=== PATIENT | male | born 1995 | race Caucasian/White ===

== ENCOUNTER 2020-05-02 09:16 | Outpatient (CLI) | payer OTHER, SELFPAY | END 2020-05-02 09:17 | disposition home or self-care (01) | PROVIDERS: PCP Family Medicine; Visit Provider Family Medicine | DX: H91.93 Unspecified hearing loss, bilateral (principal) | CPT/HCPCS: 92556; 92567; 92587 ==

== ENCOUNTER 2023-06-03 08:29 | Outpatient (CLI) | payer OTHER, SELFPAY | END 2023-06-03 08:30 | disposition home or self-care (01) | PROVIDERS: PCP Family Medicine; Visit Provider Family Medicine | DX: H91.93 Unspecified hearing loss, bilateral (principal) | CPT/HCPCS: 92567 ==

== ENCOUNTER 2023-07-23 08:19 | Outpatient (CLI) | payer OTHER, SELFPAY | END 2023-07-23 08:20 | disposition home or self-care (01) | LOC: ANHBWCAUD 08:19 | PROVIDERS: PCP Family Medicine; Visit Provider Family Medicine | DX: H91.3 Deaf nonspeaking, not elsewhere classified (principal) | CPT/HCPCS: 92567 ==

== ENCOUNTER 2024-03-17 09:10 | Outpatient (CLI) | payer OTHER, SELFPAY ==
--- OUTSIDE RECORDS SUMMARY | 2024-03-18 22:16 | XMS_ITS | Clinical Summary ---
Author Organization [facility] Address [address] [place] [address] Phone Care Team Providers Care Segmental Wall Installer Name Role Phone Yoshi Naqvi MD Primary Care Provider [phone] Alma Delia Childers APRN, CLAY CARMAN Unavailable Allergies Active Allergy Reactions Criticality Noted Date Comments Cephalexin Unknown 03/02/2020 Carbamazepine Unknown 03/02/2020 Medications traMADol (ULTRAM) 50 MG Tablet Take 1 Tab by mouth every 6 hours as needed for Mild or more severe pain. 12 Tab 1 Active Additional Information Patient not taking.Reported on 10/16/2022 Carboxymethylcel lulose Sodium (Eye Drops) 0.5 % SolutionIndicati ons:Dry eyes Place 2 Drops in affected eye(s) 5 times daily as needed (dry eyes). 1 Bottle 1 Active erythromycin (ROMYCIN) 5 MG/GM OintmentIndicati ons:Eyelid inflammation Apply 1cm ribbon to lower lid of affected eye(s) QID x 7 days 3.5 g 1 Active Additional Information Patient not taking.Reported on 10/16/2022 magnesium hydroxide (MILK OF MAGNESIA) 400 MG/5ML Suspension Take 30 mL by mouth as needed for Constipation - 1st line. EVERY 3 DAYS Active ibuprofen (MOTRIN) 200 MG Tablet Take 2 Tablets by mouth every 6 hours as needed for Fever. 30 Tablet 1 Active Additional Information Patient not taking.Reported on 10/16/2022 omeprazole (PriLOSEC) 40 MG CAPSULE DELAYED RELEASEIndicatio ns:Gastroesophag eal reflux disease, unspecified whether esophagitis present Take 1 Capsule by mouth daily. 90 Capsule 1 3 Active famotidine (PEPCID) 20 MG TabletIndication s:Gastroesophage al reflux disease, unspecified whether esophagitis present Take 1 tablet by Mouth as needed for any breakthrough heartburn. No more than twice a day. 90 Tablet 3 Active Additional Information Patient taking differently: EVERY EVENING, (No instructions reported), Reported on 10/16/2022 acetaminophen (TYLENOL) 325 MG Tablet Take 650 mg by mouth every 4 hours as needed. Active dextromethorphan -guaiFENesin (ROBITUSSIN-DM) 10-100 MG/5ML Syrup Take 10 mL by mouth every 4 hours as needed. Active Triple Antibiotic 3.5-400-5000 Ointment Apply every 8 hours as needed. 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 Subclinical hypothyroidism 03/02/2020 Encounters Date Type Department Care Team Description 12/31/2023 Lab Requisition [facility] Laboratory Services 1 [place] [address] Yoshi Naqvi MD Hypothyroidism, unspecified from Last 3 Months Immunizations Immunization Administration Dates Next Due Covid-19, Mrna, Lnp-s, Pf, 30 Mcg/0.3 Ml Dose (P fizer) 12/29/2020 Social History Tobacco Use Types Packs/Day Years Used Date Smoking Tobacco: Never Smokeless Tobacco: Never Tobacco Cessation:Counseling Given: Not Answered Alcohol Use Standard Drinks/Week Comments Never 0 (1 standard drink = 0.6 oz pur e alcohol) AUDIT-C Answer Date Recorded Q1: How often do you have a drink containing alc ohol? Never 03/02/2020 Average Number of Drinks Not on file 021 Frequency of Binge Drinking Not on file 08/2020 Sexually Active Control Partners Comments Never Sex and Gender Information Value Date Recorded Sex Assigned at Not on file Legal Sex Male 8:40 PM CDT Gender Identity Not on file Sexual Orientation Not on file Last Filed Vital Signs Vital Sign Reading Time Taken Comments Blood Pressure 128/80 03/04/2023 10:56 AM PUBLIC POLICY ASSOCIATE Pulse 69 03/04/2023 10:56 AM PUBLIC POLICY ASSOCIATE Temperature 36.3 ??C (97.4 ??F) 03/04/2023 10:[address] Respiratory Rate 16 03/04/2023 10:56 AM PUBLIC POLICY ASSOCIATE Oxygen Saturation 97% 03/04/2023 10:56 AM PUBLIC POLICY ASSOCIATE Inhaled Oxygen Concentration - - Weight 60.9 kg (134 lb 3.2 oz) 03/04/2023 10:56 AM PUBLIC POLICY ASSOCIATE Height 172.7 cm (5' 8 ) 03/04/2023 10:56 AM PUBLIC POLICY ASSOCIATE Body Mass Index 20.41 03/04/2023 10:56 AM PUBLIC POLICY ASSOCIATE Plan of Treatment Health Maintenance Due Date Last Done Comments Hepatitis C Virus (HCV) Screening 1993 TdaP Immunization 1993 Hepatitis B Immunization (1 of 3 - 19+ 3-dose series) 2012 Influenza Immunization (#1) 2023 SARS-COV-2 Immunization ( season) 2023 06/05/2022, 12/29/2020, 04/28/2020, Additional history exists Respiratory Syncytial Virus (RSV) Immunization (Adult) (1 - 1-dose 75+ series) 2068 Meningococcal Immunization (ACWY) Aged Out No longer eligible based on patient's age to complete this topic Pneumococcal Immunization Combined Aged Out No longer eligible based on patient's age to complete this topic Rotavirus Immunization Aged Out No lo nger eligible based on patient's age to complete this topic Medical Devices Implanted Type Area Data Governance Consultant Device Identifier Shelf Expiration Date Model / Serial / Lot Pacemaker Edora 8 Matt - [id number] Implanted:Qty: 1 on 03/03/2020 by Horacio Helms MD at [facility] IMPLANT Left: Chest Wall [employer] 05/24/2021 [id number] / [id number] / [id number] [employer] Solia T 53 Implanted:Qty: 1 on 03/03/2020 by Horacio Helms MD at [facility] Left: Heart 11/23/2021 / [id number] / [id number] [employer] Solia Jt 45 Implanted:Qty: 1 on 03/03/2020 by Horacio Helms MD at [facility] Left: Heart 10/24/2021 / [id number] / [id number] Procedures Procedure Name Priority Date/Time Associated Diagnosis Comments THYROID STIMULATING HORMONE (TSH) Routine 12/31/2023 7:10 AM PUBLIC POLICY ASSOCIATE Hypothyroidism, unspecified from Last 3 Months Results * THYROID STIMULATING HORMONE (TSH) (12/31/2023 7:10 AM PUBLIC POLICY ASSOCIATE) TSH 4.208 0.300 - 5.000 mIU/L 12/31/2023 10:16 AM PUBLIC POLICY ASSOCIATE [facility] Blood Venipuncture / Unknown 12/31/2023 7:10 AM PUBLIC POLICY ASSOCIATE 12/31/2023 9:27 AM PUBLIC POLICY ASSOCIATE us Yoshi Naqvi MD CHEMISTRY ORDERABLES Final Res ult [facility] [address] [place] [address] from Last 3 Months Insurance MEDICAID [place] Advance Directives * Full Code (Latest Code Status on File) Date Activated Date Inactivated Comments 03/02/2020 11:03 AM 03/04/2020 3:00 PM CPR-Full Cheryl tment: FULL ARREST: Attempt Resuscitation/CPR wit intubation and mechanical ventilation. PRE-ARREST: Use entire range of life support measures to stabilize the patient. Care Teams Segmental Wall Installer Relationship Specialty Start Date End Date Yoshi Naqvi MD [address] [place] [address] [address] [place] [address] PCP - General Family Medicine 03/02/20 Alma Delia Childers APRN, CLAY CARMAN [address] [place] [address] Nurse Practitioner Advanced Practice Nurse 10/15/22
--- OUTSIDE RECORDS SUMMARY | 2024-03-18 22:17 | XMS_ITS | Encounter Summary ---
Author Organization [facility] Address [address] [place] [address] Phone Care Team Providers Care Talent Associate Name Role Phone Yoshi Naqvi MD Primary Care Provider [phone] Alma Delia Childers APRN, PROCEDURE ANALYST Unavailable Encounter Details Date Type Department Care Team (Late st Contact Info) Description 02/20/2022 Lab Requisition [facility] Laboratory Services 1 [place] [address] Yoshi Naqvi MD [address] [place] [address] [facility] [address] [place] [address] Encounter for screening for COVID-19 Social History Tobacco Use Types Packs/Day Years Used Date Smoking Tobacco: Never Smokeless Tobacco: Never Alcohol Use Standard Drinks/Week Comments Never 0 (1 standard drink = 0.6 oz pur e alcohol) AUDIT-C Answer Date Recorded Q1: How often do you have a drink containing alc ohol? Never 03/02/2020 Average Number of Drinks Not on file 021 Frequency of Binge Drinking Not on file 08/2020 Sex and Gender Information Value Date Recorded Sex Assigned at Not on file Legal Sex Male 8:40 PM CDT Gender Identity Not on file Sexual Orientation Not on file documented as of this encounter Plan of Treatment Not on file documented as of this encounter Procedures Procedure Name Priority Date/Time Associated Diagnosis Comments SARS-COV-2 BY MOLECULAR Routine 02/20/2022 7:57 AM SYSTEM TRAINER Encounter for screening for COVID-19 documented in this encounter Results * SARS-COV-2 BY MOLECULAR (02/20/2022 7:57 AM SYSTEM TRAINER) SARSCOV2 NOT DETECTED (Referen ce Range for this test is Not Detected ) [facility] THERMOFISHER FAST DX 02/21/2022 12:02 AM SYSTEM TRAINER [facility] Comment:This test was perfor med by a RT-PCR method. Other Non-Phlebotomy Collection / Unknown 02/20/2022 7:57 AM SYSTEM TRAINER 02/20/2022 2:07 PM SYSTEM TRAINER Narrative [facility] - 02/21/2022 12:02 AM SYSTEM TRAINER Authorized Fact Sheets about this test for providers and patients are available at: https://www.fda.gov/medical-devices/lhauxxosn-bzuqupvrur-osfmibq-devices/emergen -us e-authorizations Result [facility] us Yoshi Naqvi MD MICROBIOLOGY - GENERAL ORDERAB LES Final Result [facility] [address] [place] [address], documented in this encounter Visit Diagnoses Diagnosis Encounter for screening for COVID-19 documented in this encounter Additional Health Concerns Infection Onset Date Last Indicated Resolved Time COVID - 19 02/20/2022 05/08/2022 05/18/2022 12:1 6 AM CDT documented as of this encounter Care Teams Talent Associate Relationship Specialty Start Date End Date Yoshi Naqvi MD [address] [facility] [address] [place] [address] PCP - General Family Medicine 03/02/20 Alma Delia Chidlers APRN, PROCEDURE ANALYST [address] [place] [address] Nurse Practitioner Advanced Practice Nurse 10/15/22 documented as of this encounter
--- OUTSIDE RECORDS SUMMARY | 2024-03-18 22:17 | XMS_ITS | Encounter Summary ---
Author Organization [facility] Address [address] [place] [address] Phone Care Team Providers Care Racing Car Driver Name Role Phone Yoshi Naqvi MD Primary Care Provider [phone] Alma Delia Childers APRN, CAR PILOT Unavailable Encounter Details Date Type Department Care Team (Late st Contact Info) Description 04/10/2022 Lab Requisition [facility] Laboratory Services [address] [place] [address] Yoshi Naqvi MD [address] [place] [address] [facility] [address] [place] [address] Encounter for screening for COVID-19 Social History [...] Associated Diagnosis Comments SARS-COV-2 BY MOLECULAR Routine 04/10/2022 8:20 AM VULNERABILITY ASSESSMENT ANALYST Encounter for screening for COVID-19 documented in this encounter Results * SARS-COV-2 BY MOLECULAR (04/10/2022 8:20 AM VULNERABILITY ASSESSMENT ANALYST) SARSCOV2 NOT DETECTED (Referen ce Range for this test is Not Detected ) [facility] THERMOFISHER FAST DX 04/10/2022 8:07 PM VULNERABILITY ASSESSMENT ANALYST [facility] Comment:This test was perfor med by a RT-PCR method. Other No Phlebotomy Charged / Unknown 04/10/2022 8:20 AM VULNERABILITY ASSESSMENT ANALYST 04/10/2022 10:05 AM VULNERABILITY ASSESSMENT ANALYST Narrative [facility] - 04/10/2022 8:07 PM VULNERABILITY ASSESSMENT ANALYST Authorized Fact Sheets about this test for providers and patients are available at: https://www.fda.gov/medical-devices/vrdpfhmqo-uygymzrslf-tsbuewx-devices/emergen -us e-authorizations Result [facility] us Yoshi Naqvi MD MICROBIOLOGY - GENERAL ORDERAB LES Final Result [facility] [address] [place] [address], documented in this encounter Visit Diagnoses Diagnosis Encounter for screening for COVID-19 documented in this encounter Additional Health Concerns Infection Onset Date Last Indicated Resolved Time COVID - 19 02/20/2022 05/08/2022 05/18/2022 12:1 6 AM CDT documented as of this encounter Care Teams Racing Car Driver Relationship Specialty Start Date End Date Yoshi Naqvi MD [address] [place] [address] [address] [place] [address] PCP - General Family Medicine 03/02/20 Alma Delia Childers APRN, CAR PILOT [address] [place] [address] Nurse Practitioner Advanced Practice Nurse 10/15/22 documented as of this encounter
--- OUTSIDE RECORDS SUMMARY | 2024-03-18 22:17 | XMS_ITS | Encounter Summary ---
Author Organization [facility] Address [address] [place] [address] Phone Care Team Providers Care Medical Lab Tech Instructor Name Role Phone Yoshi Naqvi MD Primary Care Provider [phone] Alma Delia Childers APRN, SOLAR ELECTRIC INSTALLER Unavailable Encounter Details Date Type Department Care Team (Late st Contact Info) Description 04/17/2022 Lab Requisition [facility] Laboratory Services 1 [place] [address] Yoshi Naqvi MD [address] [place] [address] [facility] [address] [place] [address] Encounter for screening for COVID-19 Social History [...] Associated Diagnosis Comments SARS-COV-2 BY MOLECULAR Routine 04/17/2022 8:06 AM RN RADIATION ONCOLOGY Encounter for screening for COVID-19 documented in this encounter Results * SARS-COV-2 BY MOLECULAR (04/17/2022 8:06 AM RN RADIATION ONCOLOGY) SARSCOV2 NOT DETECTED (Referen ce Range for this test is Not Detected ) [facility] THERMOFISHER FAST DX 04/18/2022 12:34 AM RN RADIATION ONCOLOGY [facility] Comment:This test was perfor med by a RT-PCR method. Other Non-Phlebotomy Collection / Unknown 04/17/2022 8:06 AM RN RADIATION ONCOLOGY 04/17/2022 10:24 AM RN RADIATION ONCOLOGY Narrative [facility] - 04/18/2022 12:34 AM RN RADIATION ONCOLOGY Authorized Fact Sheets about this test for providers and patients are available at: https://www.fda.gov/medical-devices/iazxheabc-fqeocrclay-zikmkkz-devices/emergen -us e-authorizations Result [facility] us Yoshi Naqvi MD MICROBIOLOGY - GENERAL ORDERAB LES Final Result [facility] [address] [place] [address], documented in this encounter Visit Diagnoses Diagnosis Encounter for screening for COVID-19 documented in this encounter Additional Health Concerns Infection Onset Date Last Indicated Resolved Time COVID - 19 02/20/2022 05/08/2022 05/18/2022 12:1 6 AM CDT documented as of this encounter Care Teams Medical Lab Tech Instructor Relationship Specialty Start Date End Date Yoshi Naqvi MD [address] [place] [address] [address] [place] [address] PCP - General Family Medicine 03/02/20 Alma Delia Childers APRN, SOLAR ELECTRIC INSTALLER [address] [place] [address] Nurse Practitioner Advanced Practice Nurse 10/15/22 documented as of this encounter
--- OUTSIDE RECORDS SUMMARY | 2024-03-18 22:17 | XMS_ITS | Encounter Summary ---
Author Organization [facility] Address [address] [place] [address] Phone Care Team Providers Care Maintenance And Repair Worker Name Role Phone Yoshi Naqvi MD Primary Care Provider Alma Delia Childers APRN, POKER MACHINE ATTENDANT Unavailable Encounter Details Date Type Department Care Team (Late st Contact Info) Description 12/31/2023 Lab Requisition [facility] Laboratory Services 1 [place] [id number] Yoshi Naqvi MD [address] [place] [address] [facility] [address] [place] [address] Hypothyroidism, unspecified Social History Tobacco Use Types Packs/Day Years [...] STIMULATING HORMONE (TSH) Routine 12/31/2023 7:10 AM NECK BAND MAKER Hypothyroidism, unspecified documented in this encounter Results * THYROID STIMULATING HORMONE (TSH) (12/31/2023 7:10 AM NECK BAND MAKER) TSH 4.208 0.300 - 5.000 mIU/L 12/31/2023 10:16 AM NECK BAND MAKER [facility] Blood Venipuncture / Unknown 12/31/2023 7:10 AM NECK BAND MAKER 12/31/2023 9:27 AM NECK BAND MAKER us Yoshi Naqvi MD CHEMISTRY ORDERABLES Final Res ult [facility] [address] [place] [address] documented in this encounter Visit Diagnoses Diagnosis Hypothyroidism, unspecified documented in this encounter Care Teams Maintenance And Repair Worker Relationship Specialty Start Date End Date Yoshi Naqvi MD [address] [facility] [place] [address] PCP - General Family Medicine 03/02/20 Alma Delia Childers, COMMUNITY HEALTH COUNSELOR, POKER MACHINE ATTENDANT [address] [place] [address] Nurse Practitioner Advanced Practice Nurse 10/15/22 documented as of this encounter
--- OUTSIDE RECORDS SUMMARY | 2024-03-18 22:17 | XMS_ITS | Encounter Summary ---
Author Organization [facility] Address [address] [place] [address] Phone Care Team Providers Care Instrument Setter Name Role Phone Yoshi Naqvi MD Primary Care Provider [phone] Alma Delia Childers APRN, SILK CONDITIONER Unavailable Encounter Details Date Type Department Care Team (Late st Contact Info) Description 11/28/2021 Lab Requisition [facility] Laboratory Services [address] [place] [address] Yoshi Naqvi MD [address] [place] [address] [facility] [address] [place] [address] Encounter for screening for COVID-19 Social History [...] Associated Diagnosis Comments SARS-COV-2 BY MOLECULAR Routine 11/28/2021 8:14 AM CDT Encounter for screening for COVID-19 documented in this encounter Results * SARS-COV-2 BY MOLECULAR (11/28/2021 8:14 AM CDT) SARSCOV2 NOT DETECTED (Referen ce Range for this test is Not Detected ) [facility] THERMOFISHER FAST DX 11/29/2021 12:29 AM CDT [facility] Comment:This test was perfor med by a RT-PCR method. Other No Phlebotomy Charged / Unknown 11/28/2021 8:14 AM CDT 11/28/2021 1:49 PM CDT Narrative [facility] - 11/29/2021 12:29 AM CDT Authorized Fact Sheets about this test for providers and patients are available at: https://www.fda.gov/medical-devices/bjoedqsuy-kcxkwlplrm-ufcvxfw-devices/emergen -us e-authorizations us Yoshi Naqvi MD MICROBIOLOGY - GENERAL ORDERAB LES Final Result [facility] [address] [place] [address], documented in this encounter Visit Diagnoses Diagnosis Encounter for screening for COVID-19 documented in this encounter Additional Health Concerns Infection Onset Date Last Indicated Resolved Time COVID - 19 10/31/2021 01/02/2022 01/12/2022 12:1 6 AM GUEST SERVICE AIDE COVID - 19 02/20/2022 05/08/2022 05/18/2022 12:1 6 AM CDT documented as of this encounter Care Teams Instrument Setter Relationship Specialty Start Date End Date Yoshi Naqvi MD [address] [place] [address] [address] [place] [address] PCP - General Family Medicine 03/02/20 Alma Delia Childers APRN, SILK CONDITIONER [address] [place] [address] Nurse Practitioner Advanced Practice Nurse 10/15/22 documented as of this encounter
--- OUTSIDE RECORDS SUMMARY | 2024-03-18 22:17 | XMS_ITS | Encounter Summary ---
Author Organization [facility] Address [address] [place] [address] Phone Care Team Providers Care Team Psychologist Name Role Phone Yoshi Naqvi MD Primary Care Provider [phone] Alma Delia Childers APRN, SKEIN YARN DRIER Unavailable Encounter Details Date Type Department Care Team (Late st Contact Info) Description 01/02/2022 Lab Requisition [facility] Laboratory Services 1 [place] [address] Yoshi Naqvi MD [address] [place] [address] [facility] [address] [place] [address] Encounter for screening for COVID-19 Social History [...] on file Sexual Orientation Not on file COVID-19 Exposure Response Date Recorded In the last 10 days, have yo u been in contact with someone who was confirmed or suspected to have Coronavirus/COVID-19? No / Unsure 12/28/2021 5:44 PM CDT documented as of this encounter Plan of Treatment Not on file documented as of this encounter Procedures Procedure Name Priority Date/Time Associated Diagnosis Comments SARS-COV-2 BY MOLECULAR Routine 01/02/2022 8:10 AM ADMINISTRATIVE FELLOW Encounter for screening for COVID-19 documented in this encounter Results * SARS-COV-2 BY MOLECULAR (01/02/2022 8:10 AM ADMINISTRATIVE FELLOW) SARSCOV2 NOT DETECTED (Referen ce Range for this test is Not Detected ) [facility] THERMOFISHER FAST DX 01/03/2022 4:42 AM ADMINISTRATIVE FELLOW [facility] Comment:This test was perfor med by a RT-PCR method. Other No Phlebotomy Charged / Unknown 01/02/2022 8:10 AM ADMINISTRATIVE FELLOW 01/02/2022 11:40 AM ADMINISTRATIVE FELLOW Narrative [facility] - 01/03/2022 4:42 AM ADMINISTRATIVE FELLOW Authorized Fact Sheets about this test for providers and patients are available at: https://www.fda.gov/medical-devices/vasxayrar-foohpmblqn-gpivyer-devices/emergen -us e-authorizations us Yoshi Naqvi MD MICROBIOLOGY - GENERAL ORDERAB LES Final Result [facility] [address] [place] [address], documented in this encounter Visit Diagnoses Diagnosis Encounter for screening for COVID-19 documented in this encounter Additional Health Concerns Infection Onset Date Last Indicated Resolved Time COVID - 19 10/31/2021 01/02/2022 01/12/2022 12:1 6 AM ADMINISTRATIVE FELLOW COVID - 19 02/20/2022 05/08/2022 05/18/2022 12:1 6 AM CDT documented as of this encounter Care Teams Team Psychologist Relationship Specialty Start Date End Date Yoshi Naqvi MD [address] [facility] [address] [place] [address] PCP - General Family Medicine 03/02/20 Alma Delia Childers APRN, SKEIN YARN DRIER [address] [place] [address] Nurse Practitioner Advanced Practice Nurse 10/15/22 documented as of this encounter
--- OUTSIDE RECORDS SUMMARY | 2024-03-18 22:17 | XMS_ITS | Encounter Summary ---
Author Organization [facility] Address [address] [place] [address] Phone Care Team Providers Care Salesperson Burial Plots Name Role Phone Yoshi Naqvi MD Primary Care Provider [phone] Alma Delia Childers APRN, ORAL AND MAXILLOFACIAL SURGEON Unavailable Encounter Details Date Type Department Care Team (Late st Contact Info) Description 03/21/2022 Lab Requisition [facility] Laboratory Services 1 [place] [address] Yoshi Naqvi MD [address] [place] [address] [facility] [address] [place] [address] Encounter for screening for COVID-19 Social History [...] Associated Diagnosis Comments SARS-COV-2 BY MOLECULAR Routine 03/21/2022 8:13 AM CHIEF LIFESTYLE OFFICER Encounter for screening for COVID-19 documented in this encounter Results * SARS-COV-2 BY MOLECULAR (03/21/2022 8:13 AM CHIEF LIFESTYLE OFFICER) SARSCOV2 NOT DETECTED (Referen ce Range for this test is Not Detected ) [facility] THERMOFISHER FAST DX 03/21/2022 5:12 PM CHIEF LIFESTYLE OFFICER [facility] Comment:This test was perfor med by a RT-PCR method. Other Non-Phlebotomy Collection / Unknown 03/21/2022 8:13 AM CHIEF LIFESTYLE OFFICER 03/21/2022 9:56 AM CHIEF LIFESTYLE OFFICER Narrative [facility] - 03/21/2022 5:12 PM CHIEF LIFESTYLE OFFICER Authorized Fact Sheets about this test for providers and patients are available at: https://www.fda.gov/medical-devices/smlhzxqfu-itresfunqc-oalasej-devices/emergen -us e-authorizations Result [facility] us Yoshi Naqvi MD MICROBIOLOGY - GENERAL ORDERAB LES Final Result [facility] [address] [place] [address], documented in this encounter Visit Diagnoses Diagnosis Encounter for screening for COVID-19 documented in this encounter Additional Health Concerns Infection Onset Date Last Indicated Resolved Time COVID - 19 02/20/2022 05/08/2022 05/18/2022 12:1 6 AM CDT documented as of this encounter Care Teams Salesperson Burial Plots Relationship Specialty Start Date End Date Yoshi Naqvi MD [address] [place] [address] [address] [place] [address] PCP - General Family Medicine 03/02/20 Alma Delia Childers APRN, ORAL AND MAXILLOFACIAL SURGEON [address] [place] [address] Nurse Practitioner Advanced Practice Nurse 10/15/22 documented as of this encounter
--- OUTSIDE RECORDS SUMMARY | 2024-03-18 22:17 | XMS_ITS | Encounter Summary ---
Author Organization [facility] Address [address] [place] [address] Phone Care Team Providers Care Smutter Name Role Phone Yoshi Naqvi MD Primary Care Provider [phone] Alma Delia Childers APRN, TOP TILE DECORATOR Unavailable Encounter Details Date Type Department Care Team (Late st Contact Info) Description 06/27/2021 Lab Requisition [facility] Laboratory Services 1 [place] [address] Yoshi Naqvi MD [address] [place] [address] [facility] [address] [place] [address] Encounter for screening for COVID-19 Social History [...] Associated Diagnosis Comments SARS-COV-2 BY MOLECULAR Routine 06/27/2021 7:58 AM CDT Encounter for screening for COVID-19 documented in this encounter Results * SARS-COV-2 BY MOLECULAR (06/27/2021 7:58 AM CDT) SARSCOV2 NOT DETECTED (Referen ce Range for this test is Not Detected ) [facility] THERMOFISHER FAST DX 06/27/2021 11:33 PM CDT [facility] Comment:This test was perfor med by a RT-PCR method. Other Non-Phlebotomy Collection / Unknown 06/27/2021 7:58 AM CDT 06/27/2021 11:59 AM CDT Narrative [facility] - 06/27/2021 11:33 PM CDT Authorized Fact Sheets about this test for providers and patients are available at: https://www.fda.gov/medical-devices/yqfwqjwzz-yicusvsciy-bpedzid-devices/emergen -us e-authorizations us Yoshi Naqvi MD MICROBIOLOGY - GENERAL ORDERAB LES Final Result [facility] [address] [place] [address], documented in this encounter Visit Diagnoses Diagnosis Encounter for screening for COVID-19 documented in this encounter Additional Health Concerns Infection Onset Date Last Indicated Resolved Time COVID - 19 11/15/2020 08/01/2021 08/02/2021 2:04 PM CDT COVID - 19 Confirmed 08/01/2021 08/01/2021 022 12:16 AM CDT COVID - 19 10/31/2021 01/02/2022 01/12/2022 12:1 6 AM RESEARCH SCIENTIST COVID - 19 02/20/2022 05/08/2022 05/18/2022 12:1 6 AM CDT documented as of this encounter Care Teams Smutter Relationship Specialty Start Date End Date Yoshi Naqvi MD [address] [facility] [address] [place] [address] PCP - General Family Medicine 03/02/20 Alma Delia Childers APRN, TOP TILE DECORATOR #2 [place] [address] Nurse Practitioner Advanced Practice Nurse 10/15/22 documented as of this encounter
--- OUTSIDE RECORDS SUMMARY | 2024-03-18 22:17 | XMS_ITS | Encounter Summary ---
Author Organization [facility] Address [address] [place] [address] Phone Care Team Providers Care Health Professor Name Role Phone Yoshi Naqvi MD Primary Care Provider [phone] Alma Delia Childers APRN, ENVIRONMENTAL ASSISTANT Unavailable Encounter Details Date Type Department Care Team (Late st Contact Info) Description 12/19/2021 Lab Requisition [facility] Laboratory Services 1 [place] [address] Yoshi Naqvi MD [address] [place] [address] [facility] [address] [place] [address] Encounter for screening for COVID-19 Social History [...] Associated Diagnosis Comments SARS-COV-2 BY MOLECULAR Routine 12/19/2021 8:31 AM CDT Encounter for screening for COVID-19 documented in this encounter Results * SARS-COV-2 BY MOLECULAR (12/19/2021 8:31 AM CDT) SARSCOV2 NOT DETECTED (Referen ce Range for this test is Not Detected ) [facility] THERMOFISHER FAST DX 12/20/2021 12:21 AM CDT [facility] Comment:This test was perfor med by a RT-PCR method. Other Non-Phlebotomy Collection / Unknown 12/19/2021 8:31 AM CDT 12/19/2021 11:45 AM CDT Narrative [facility] - 12/20/2021 12:21 AM CDT Authorized Fact Sheets about this test for providers and patients are available at: https://www.fda.gov/medical-devices/eylpskwdr-ezbdxmmbom-jznmyfd-devices/emergen -us e-authorizations us Yoshi Naqvi MD MICROBIOLOGY - GENERAL ORDERAB LES Final Result [facility] [address] [place] [address], documented in this encounter Visit Diagnoses Diagnosis Encounter for screening for COVID-19 documented in this encounter Additional Health Concerns Infection Onset Date Last Indicated Resolved Time COVID - 19 10/31/2021 01/02/2022 01/12/2022 12:1 6 AM CUTLET MAKER PORK COVID - 19 02/20/2022 05/08/2022 05/18/2022 12:1 6 AM CDT documented as of this encounter Care Teams Health Professor Relationship Specialty Start Date End Date Yoshi Naqvi MD [address] [place] [address] [address] [place] [address] PCP - General Family Medicine 03/02/20 Alma Delia Childers APRN, ENVIRONMENTAL ASSISTANT [address]2 [place] [address] Nurse Practitioner Advanced Practice Nurse 10/15/22 documented as of this encounter
--- OUTSIDE RECORDS SUMMARY | 2024-03-18 22:17 | XMS_ITS | Encounter Summary ---
Author Organization [facility] Address [address] [place] [address] Phone Care Team Providers Care Dramatic Director Name Role Phone Yoshi Naqvi MD Primary Care Provider [phone] Alma Delia Childers APRN, WHEAT BUYER Unavailable Encounter Details Date Type Department Care Team (Late st Contact Info) Description 03/27/2022 Lab Requisition [facility] Laboratory Services 1 [place] [address] Yoshi Naqvi MD [address] [place] [address] [facility] 210 [place] [address] Encounter for screening for COVID-19 Social History [...] Associated Diagnosis Comments SARS-COV-2 BY MOLECULAR Routine 03/27/2022 7:57 AM LEATHER TANNER Encounter for screening for COVID-19 documented in this encounter Results * SARS-COV-2 BY MOLECULAR (03/27/2022 7:57 AM LEATHER TANNER) SARSCOV2 NOT DETECTED (Referen ce Range for this test is Not Detected ) [facility] THERMOFISHER FAST DX 03/27/2022 10:10 PM LEATHER TANNER [facility] Comment:This test was perfor med by a RT-PCR method. Other Non-Phlebotomy Collection / Unknown 03/27/2022 7:57 AM LEATHER TANNER 03/27/2022 10:11 AM LEATHER TANNER Narrative [facility] - 03/27/2022 10:10 PM LEATHER TANNER Authorized Fact Sheets about this test for providers and patients are available at: https://www.fda.gov/medical-devices/fmncjdqha-cmnailutth-hikrpvq-devices/emergen -us e-authorizations Result [facility] us Yoshi Naqvi MD MICROBIOLOGY - GENERAL ORDERAB LES Final Result [facility] [address] [place] [address], documented in this encounter Visit Diagnoses Diagnosis Encounter for screening for COVID-19 documented in this encounter Additional Health Concerns Infection Onset Date Last Indicated Resolved Time COVID - 19 02/20/2022 05/08/2022 05/18/2022 12:1 6 AM CDT documented as of this encounter Care Teams Dramatic Director Relationship Specialty Start Date End Date Yoshi Naqvi MD [address] [place] [address] [address] [place] [address] PCP - General Family Medicine 03/02/20 Alma Delia Childers APRN, WHEAT BUYER [address] [place] [address] Nurse Practitioner Advanced Practice Nurse 10/15/22 documented as of this encounter
--- OUTSIDE RECORDS SUMMARY | 2024-03-18 22:17 | XMS_ITS | Encounter Summary ---
Author Organization [facility] Address [address] [place] [address] Phone Care Team Providers Care Entry Rep Name Role Phone Yoshi Naqvi MD Primary Care Provider [phone] Alma Delia Childers APRN, SIMULATION SPECIALIST Unavailable Encounter Details Date Type Department Care Team (Late st Contact Info) Description 11/21/2021 Lab Requisition [facility] Laboratory Services 1 [place] [address] Yoshi Naqvi MD [address] [place] [address] [facility] [address] [place] [address] Encounter for screening for COVID-19 Social History [...] Associated Diagnosis Comments SARS-COV-2 BY MOLECULAR Routine 11/21/2021 7:51 AM CDT Encounter for screening for COVID-19 documented in this encounter Results * SARS-COV-2 BY MOLECULAR (11/21/2021 7:51 AM CDT) SARSCOV2 NOT DETECTED (Referen ce Range for this test is Not Detected ) [facility] THERMOFISHER FAST DX 11/22/2021 5:34 PM CDT [facility] Comment:This test was perfor med by a RT-PCR method. Other Non-Phlebotomy Collection / Unknown 11/21/2021 7:51 AM CDT 11/21/2021 11:57 AM CDT Narrative [facility] - 11/22/2021 5:34 PM CDT Authorized Fact Sheets about this test for providers and patients are available at: https://www.fda.gov/medical-devices/ubycghpjf-gmddkeajsu-tlnuyjw-devices/emergen -us e-authorizations us Yoshi Naqvi MD MICROBIOLOGY - GENERAL ORDERAB LES Final Result 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
--- OUTSIDE RECORDS SUMMARY | 2024-03-18 22:17 | XMS_ITS | Encounter Summary ---
Author Organization [facility] Address [address] [place] [address] Phone Care Team Providers Care Sheet Layer Name Role Phone Yoshi Naqvi MD Primary Care Provider [phone] Alma Delia Childers APRN, EXPERIMENTAL TECHNICIAN Unavailable Encounter Details Date Type Department Care Team (Late st Contact Info) Description 07/25/2021 Lab Requisition [facility] Laboratory Services 1 [place] [address] Yoshi Naqvi MD [address] [place] [address] [facility] [address] [place] [address] Encounter for screening for COVID-19 Social History [...] Associated Diagnosis Comments SARS-COV-2 BY MOLECULAR Routine 07/25/2021 8:06 AM CDT Encounter for screening for COVID-19 documented in this encounter Results * SARS-COV-2 BY MOLECULAR (07/25/2021 8:06 AM CDT) SARSCOV2 NOT DETECTED (Referen ce Range for this test is Not Detected ) [facility] THERMOFISHER FAST DX 07/26/2021 8:04 AM CDT [facility] Comment:This test was perfor med by a RT-PCR method. Other Non-Phlebotomy Collection / Unknown 07/25/2021 8:06 AM CDT 07/25/2021 12:53 PM CDT Narrative [facility] - 07/26/2021 8:04 AM CDT Authorized Fact Sheets about this test for providers and patients are available at: https://www.fda.gov/medical-devices/pohvmjmfq-pfwcmrlldb-iujcdjn-devices/emergen -us e-authorizations us Yoshi Naqvi MD MICROBIOLOGY - GENERAL ORDERAB LES Final Result [facility] [address] [place] [address], documented in this encounter Visit Diagnoses Diagnosis Encounter for screening for COVID-19 documented in this encounter Additional Health Concerns Infection Onset Date Last Indicated Resolved Time COVID - 19 11/15/2020 08/01/2021 08/02/2021 2:04 PM CDT COVID - 19 Confirmed 08/01/2021 08/01/2021 022 12:16 AM CDT COVID - 19 10/31/2021 01/02/2022 01/12/2022 12:1 6 AM WOVEN BLIND LOOM TENDER COVID - 19 02/20/2022 05/08/2022 05/18/2022 12:1 6 AM CDT documented as of this encounter Care Teams Sheet Layer Relationship Specialty Start Date End Date oYshi Naqvi MD [address] [facility] [address] [place] [address] PCP - General Family Medicine 03/02/20 Alma Delia Childers APRN, EXPERIMENTAL TECHNICIAN [address] [place] [address] Nurse Practitioner Advanced Practice Nurse 10/15/22 documented as of this encounter
--- OUTSIDE RECORDS SUMMARY | 2024-03-18 22:17 | XMS_ITS | Encounter Summary ---
Author Organization [facility] Address [address] [place] [address] Phone Care Team Providers Care Front Services Agent Name Role Phone Yoshi Naqvi MD Primary Care Provider [phone] Alma Delia Childers APRN, CONE EXAMINER Unavailable Encounter Details Date Type Department Care Team (Late st Contact Info) Description 12/05/2021 Lab Requisition [facility] Laboratory Services 1 [place] [address] Yoshi Naqvi MD [address] [place] [address] [facility] 210 [place] [address] Encounter for screening for COVID-19 Social History [...] Associated Diagnosis Comments SARS-COV-2 BY MOLECULAR Routine 12/05/2021 8:18 AM CDT Encounter for screening for COVID-19 documented in this encounter Results * SARS-COV-2 BY MOLECULAR (12/05/2021 8:18 AM CDT) SARSCOV2 NOT DETECTED (Referen ce Range for this test is Not Detected ) [facility] THERMOFISHER FAST DX 12/06/2021 12:18 AM CDT [facility] Comment:This test was perfor med by a RT-PCR method. Other No Phlebotomy Charged / Unknown 12/05/2021 8:18 AM CDT 12/05/2021 11:21 AM CDT Narrative [facility] - 12/06/2021 12:18 AM CDT Authorized Fact Sheets about this test for providers and patients are available at: https://www.fda.gov/medical-devices/wadqhgnnn-evqtyyblfg-exjbhmx-devices/emergen -us e-authorizations us Yoshi Naqvi MD MICROBIOLOGY - GENERAL ORDERAB LES Final Result [facility] [address] [place] [address], documented in this encounter Visit Diagnoses Diagnosis Encounter for screening for COVID-19 documented in this encounter Additional Health Concerns Infection Onset Date Last Indicated Resolved Time COVID - 19 10/31/2021 01/02/2022 01/12/2022 12:1 6 AM CLOCK AND WATCH HANDS 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
--- OUTSIDE RECORDS SUMMARY | 2024-03-18 22:17 | XMS_ITS | Encounter Summary ---
Author Organization [facility] Address [address] [place] [address] Phone Care Team Providers Care Calculus Teacher Name Role Phone Yoshi Naqvi MD Primary Care Provider [phone] Alma Delia Childers APRN, SQL SSIS DEVELOPER Unavailable Encounter Details Date Type Department Care Team (Late st Contact Info) Description 11/14/2021 Lab Requisition [facility] Laboratory Services 1 [place] [address] Yoshi Naqvi MD [address] [place] [address] [facility] 210 [place] [address] Encounter for screening for COVID-19 Social History [...] Associated Diagnosis Comments SARS-COV-2 BY MOLECULAR Routine 11/14/2021 7:41 AM CDT Encounter for screening for COVID-19 documented in this encounter Results * SARS-COV-2 BY MOLECULAR (11/14/2021 7:41 AM CDT) SARSCOV2 NOT DETECTED (Referen ce Range for this test is Not Detected ) [facility] THERMOFISHER FAST DX 11/15/2021 12:20 PM CDT [facility] Comment:This test was perfor med by a RT-PCR method. Other Non-Phlebotomy Collection / Unknown 11/14/2021 7:41 AM CDT 11/14/2021 11:[address] [facility] - 11/15/2021 12:20 PM CDT Authorized Fact Sheets about this test for providers and patients are available at: https://www.fda.gov/medical-devices/cgvspjyfb-zgqffaijsa-vhsyljc-devices/emergen -us e-authorizations us Yoshi Naqvi MD MICROBIOLOGY - GENERAL ORDERAB LES Final Result [facility] [address] [place] [address], documented in this encounter Visit Diagnoses Diagnosis Encounter for screening for COVID-19 documented in this encounter Additional Health Concerns Infection Onset Date Last Indicated Resolved Time COVID - 19 10/31/2021 01/02/2022 01/12/2022 12:1 6 AM BUSINESS SERVICES ANALYST COVID - 19 02/20/2022 05/08/2022 05/18/2022 12:1 6 AM CDT documented as of this encounter Care Teams Calculus Teacher Relationship Specialty Start Date End Date Yoshi Naqvi MD [address] [place] [address] [address] [place] [address] PCP - General Family Medicine 03/02/20 Alma Delia Childers APRN, SQL SSIS DEVELOPER #[address] [place] [address] Nurse Practitioner Advanced Practice Nurse 10/15/22 documented as of this encounter
--- OUTSIDE RECORDS SUMMARY | 2024-03-18 22:17 | XMS_ITS | Encounter Summary ---
Author Organization [facility] Address [address] [place] [address] Phone Care Team Providers Care Family Assessment Worker Name Role Phone Yoshi Naqvi MD Primary Care Provider [phone] Alma Delia Childers APRN, SALES ASSOCIATE KEY HOLDER Unavailable Encounter Details Date Type Department Care Team (Late st Contact Info) Description 04/03/2022 Lab Requisition [facility] Laboratory Services 1 [place] [address] Yoshi Naqvi MD [address] [place] [address] [facility] [address] [place] [address] Encounter for screening for COVID-19 Social History [...] Associated Diagnosis Comments SARS-COV-2 BY MOLECULAR Routine 04/03/2022 8:05 AM SQUARING MACHINE OPERATOR Encounter for screening for COVID-19 documented in this encounter Results * SARS-COV-2 BY MOLECULAR (04/03/2022 8:05 AM SQUARING MACHINE OPERATOR) SARSCOV2 NOT DETECTED (Referen ce Range for this test is Not Detected ) [facility] THERMOFISHER FAST DX 04/03/2022 7:20 PM SQUARING MACHINE OPERATOR [facility] Comment:This test was perfor med by a RT-PCR method. Other Non-Phlebotomy Collection / Unknown 04/03/2022 8:05 AM SQUARING MACHINE OPERATOR 04/03/2022 10:19 AM SQUARING MACHINE OPERATOR Narrative [facility] - 04/03/2022 7:20 PM SQUARING MACHINE OPERATOR Authorized Fact Sheets about this test for providers and patients are available at: https://www.fda.gov/medical-devices/ltasmkfpv-yfedbmumtg-hjcbxdm-devices/emergen -us e-authorizations Result [facility] us Yoshi Naqvi MD MICROBIOLOGY - GENERAL ORDERAB LES Final Result [facility] [address] [place] [address], documented in this encounter Visit Diagnoses Diagnosis Encounter for screening for COVID-19 documented in this encounter Additional Health Concerns Infection Onset Date Last Indicated Resolved Time COVID - 19 02/20/2022 05/08/2022 05/18/2022 12:1 6 AM CDT documented as of this encounter Care Teams Family Assessment Worker Relationship Specialty Start Date End Date Yoshi Naqvi MD [address] [place] [address] [address] [place] [address] PCP - General Family Medicine 03/02/20 Alma Delia Childers APRN, SALES ASSOCIATE KEY HOLDER [address] [place] [address] Nurse Practitioner Advanced Practice Nurse 10/15/22 documented as of this encounter
--- OUTSIDE RECORDS SUMMARY | 2024-03-18 22:17 | XMS_ITS | Encounter Summary ---
Author Organization [facility] Address [address] [place] [address] Phone Care Team Providers Care Therapeutic Strategy Lead Name Role Phone Yoshi Naqvi MD Primary Care Provider [phone] Alma Delia Childers APRN, HAND BOX FOLDER Unavailable Encounter Details Date Type Department Care Team (Late st Contact Info) Description 12/26/2021 Lab Requisition [facility] Laboratory Services 1 [place] [address] Yoshi Naqvi MD [address] [place] [address] [facility] 210 [place] [address] Encounter for screening for COVID-19 Social History [...] Associated Diagnosis Comments SARS-COV-2 BY MOLECULAR Routine 12/26/2021 8:23 AM CDT Encounter for screening for COVID-19 documented in this encounter Results * SARS-COV-2 BY MOLECULAR (12/26/2021 8:23 AM CDT) SARSCOV2 NOT DETECTED (Referen ce Range for this test is Not Detected ) [facility] THERMOFISHER FAST DX 12/27/2021 12:01 AM CDT [facility] Comment:This test was perfor med by a RT-PCR method. Other Non-Phlebotomy Collection / Unknown 12/26/2021 8:23 AM CDT 12/26/2021 11:25 AM CDT Narrative [facility] - 12/27/2021 12:01 AM CDT Authorized Fact Sheets about this test for providers and patients are available at: https://www.fda.gov/medical-devices/tirepcjdy-oytqrsafvk-twjlkiy-devices/emergen -us e-authorizations us Yoshi Naqvi MD MICROBIOLOGY - GENERAL ORDERAB LES Final Result [facility] [address] [place] [address], documented in this encounter Visit Diagnoses Diagnosis Encounter for screening for COVID-19 documented in this encounter Additional Health Concerns Infection Onset Date Last Indicated Resolved Time COVID - 19 10/31/2021 01/02/2022 01/12/2022 12:1 6 AM DIE SIZER COVID - 19 02/20/2022 05/08/2022 05/18/2022 12:1 6 AM CDT documented as of this encounter Care Teams Therapeutic Strategy Lead Relationship Specialty Start Date End Date Yoshi Naqvi MD [address] [facility] [address] PCP - General Family Medicine 03/02/20 Alma Delia Childers GERIATRICS PHYSICIAN, HAND BOX FOLDER [address] [place] [address] Nurse Practitioner Advanced Practice Nurse 10/15/22 documented as of this encounter
--- OUTSIDE RECORDS SUMMARY | 2024-03-18 22:17 | XMS_ITS | Encounter Summary ---
Author Organization [facility] Address [address] [place] [address] Phone Care Team Providers Care Contact Lens Flashing Puncher Name Role Phone Yoshi Naqvi MD Primary Care Provider Alma Delia Childers APRN, AMMONIA NITRATE OPERATOR Unavailable Encounter Details Date Type Department Care Team (Late st Contact Info) Description 07/04/2021 Lab Requisition [facility] Laboratory Services 1 [place] [address] Yoshi Naqvi MD [address] [place] [address] [facility] [address] [place] [address] Encounter for screening for COVID-19 Social History [...] Associated Diagnosis Comments SARS-COV-2 BY MOLECULAR Routine 07/04/2021 8:12 AM CDT Encounter for screening for COVID-19 documented in this encounter Results * SARS-COV-2 BY MOLECULAR (07/04/2021 8:12 AM CDT) SARSCOV2 NOT DETECTED (Referen ce Range for this test is Not Detected ) [facility] THERMOFISHER FAST DX 07/05/2021 10:12 AM CDT [facility] Comment:This test was perfor med by a RT-PCR method. Other Non-Phlebotomy Collection / Unknown 07/04/2021 8:12 AM CDT 07/04/2021 10:50 AM CDT Narrative [facility] - 07/05/2021 10:12 AM CDT Authorized Fact Sheets about this test for providers and patients are available at: https://www.fda.gov/medical-devices/pjcbbtbbh-pfhnxujqwu-kapjxau-devices/emergen -us e-authorizations us Yoshi Naqvi MD MICROBIOLOGY - GENERAL ORDERAB LES Final Result [facility] [address] [place] [address], documented in this encounter Visit Diagnoses Diagnosis Encounter for screening for COVID-19 documented in this encounter Additional Health Concerns Infection Onset Date Last Indicated Resolved Time COVID - 19 11/15/2020 08/01/2021 08/02/2021 2:04 PM CDT COVID - 19 Confirmed 08/01/2021 08/01/2021 022 12:16 AM CDT COVID - 19 10/31/2021 01/02/2022 01/12/2022 12:1 6 AM CHILD CAREGIVER PRIVATE HOME COVID - 19 02/20/2022 05/08/2022 05/18/2022 12:1 6 AM CDT documented as of this encounter Care Teams Contact Lens Flashing Puncher Relationship Specialty Start Date End Date Yoshi Naqvi MD [address] [facility] [address] [place] [address] PCP - General Family Medicine 03/02/20 Alma Delia Childers APRN, AMMONIA NITRATE OPERATOR [address] [place] [address] Nurse Practitioner Advanced Practice Nurse 10/15/22 documented as of this encounter
--- OUTSIDE RECORDS SUMMARY | 2024-03-18 22:17 | XMS_ITS | Encounter Summary ---
Author Organization [facility] Address [address] [place] [address] Phone Care Team Providers Care Outside Sales Account Manager Name Role Phone Yoshi Naqvi MD Primary Care Provider [phone] Alma Delia Childers APRN, MATERIAL CONTROL SPECIALIST Unavailable Encounter Details Date Type Department Care Team (Late st Contact Info) Description 12/12/2021 Lab Requisition [facility] Laboratory Services 1 [place] [address] Yoshi Naqvi MD [address] [place] [address] [facility] [address] [place] [address] Encounter for screening for COVID-19 Social History [...] Associated Diagnosis Comments SARS-COV-2 BY MOLECULAR Routine 12/12/2021 8:20 AM CDT Encounter for screening for COVID-19 documented in this encounter Results * SARS-COV-2 BY MOLECULAR (12/12/2021 8:20 AM CDT) SARSCOV2 NOT DETECTED (Referen ce Range for this test is Not Detected ) [facility] THERMOFISHER FAST DX 12/12/2021 11:59 PM CDT [facility] Comment:This test was perfor med by a RT-PCR method. Other Non-Phlebotomy Collection / Unknown 12/12/2021 8:20 AM CDT 12/12/2021 11:23 AM CDT Narrative [facility] - 12/12/2021 11:59 PM CDT Authorized Fact Sheets about this test for providers and patients are available at: https://www.fda.gov/medical-devices/izypnkocd-rgtajmzzlw-wtzykun-devices/emergen -us e-authorizations us Yoshi Naqvi MD MICROBIOLOGY - GENERAL ORDERAB LES Final Result [facility] [address] [place] [address], documented in this encounter Visit Diagnoses Diagnosis Encounter for screening for COVID-19 documented in this encounter Additional Health Concerns Infection Onset Date Last Indicated Resolved Time COVID - 19 10/31/2021 01/02/2022 01/12/2022 12:1 6 AM 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
--- OUTSIDE RECORDS SUMMARY | 2024-03-18 22:17 | XMS_ITS | Encounter Summary ---
Author Organization [facility] Address [address] [place] [address] Phone Care Team Providers Care Engineering Specialist Technician Name Role Phone Yoshi Naqvi MD Primary Care Provider [phone] Alma Delia Childers APRN, HOME CARE ATTENDANT Unavailable Encounter Details Date Type Department Care Team (Late st Contact Info) Description 07/18/2021 Lab Requisition [facility] Laboratory Services 1 [place] [address] Yoshi Naqvi MD [address] [place] [address] [facility] 210 [place] [address] Encounter for screening for COVID-19 Social History [...] Associated Diagnosis Comments SARS-COV-2 BY MOLECULAR Routine 07/18/2021 8:06 AM CDT Encounter for screening for COVID-19 documented in this encounter Results * SARS-COV-2 BY MOLECULAR (07/18/2021 8:06 AM CDT) SARSCOV2 NOT DETECTED (Referen ce Range for this test is Not Detected ) [facility] THERMOFISHER FAST DX 07/19/2021 12:49 AM CDT [facility] Comment:This test was perfor med by a RT-PCR method. Other Venipuncture / Unknown 07/18/2021 8:06 AM CDT 07/18/2021 12:03 PM CDT Narrative [facility] - 07/19/2021 12:49 AM CDT Authorized Fact Sheets about this test for providers and patients are available at: https://www.fda.gov/medical-devices/yrvveffkl-hpjflufasy-pobmmrn-devices/emergen cy-us e-authorizations us Yoshi Naqvi MD MICROBIOLOGY - GENERAL ORDERAB LES Final Result [facility] [address] [place] [address], documented in this encounter Visit Diagnoses Diagnosis Encounter for screening for COVID-19 documented in this encounter Additional Health Concerns Infection Onset Date Last Indicated Resolved Time COVID - 19 11/15/2020 08/01/2021 08/02/2021 2:04 PM CDT COVID - 19 Confirmed 08/01/2021 08/01/2021 022 12:16 AM CDT COVID - 19 10/31/2021 01/02/2022 01/12/2022 12:1 6 AM BRICK LAYER COVID - 19 02/20/2022 05/08/2022 05/18/2022 12:1 6 AM CDT documented as of this encounter Care Teams Engineering Specialist Technician Relationship Specialty Start Date End Date Yoshi Naqvi MD [address] [facility] [address] [place] [address] PCP - General Family Medicine 03/02/20 Alma Delia Childers, ETHNOLOGY PROFESSOR, HOME CARE ATTENDANT [address] [place] [address] Nurse Practitioner Advanced Practice Nurse 10/15/22 documented as of this encounter
--- OUTSIDE RECORDS SUMMARY | 2024-03-18 22:17 | XMS_ITS | Encounter Summary ---
Author Organization [facility] Address [address] [place] [address] Phone Care Team Providers Care Cataract Lens Generator Name Role Phone Yoshi Naqvi MD Primary Care Provider [phone] Alma Delia Childers APRN, COMPUTER SPECIALIST Unavailable Encounter Details Date Type Department Care Team (Late st Contact Info) Description 05/08/2022 Lab Requisition [facility] Laboratory Services 1 [place] [address] Yoshi Naqvi MD [address] [place] [address] [facility] [address] [place] [address] Encounter for screening for COVID-19 Social History [...] Associated Diagnosis Comments SARS-COV-2 BY MOLECULAR Routine 05/08/2022 7:59 AM CDT Encounter for screening for COVID-19 documented in this encounter Results * SARS-COV-2 BY MOLECULAR (05/08/2022 7:59 AM CDT) SARSCOV2 NOT DETECTED (Referen ce Range for this test is Not Detected ) [facility] THERMOFISHER FAST DX 05/08/2022 5:01 PM CDT [facility] Comment:This test was perfor med by a RT-PCR method. Other COVID 19 Collection / Unknown 05/08/2022 7:59 AM CDT 05/08/2022 9:43 AM CDT Narrative [facility] - 05/08/2022 5:01 PM CDT Authorized Fact Sheets about this test for providers and patients are available at: https://www.fda.gov/medical-devices/ljkwhlfdi-aghfjyuyvy-shvziko-devices/emergen -us e-authorizations us Yoshi Naqvi MD MICROBIOLOGY - GENERAL ORDERAB LES Final Result [facility] [address] [place] [address], documented in this encounter Visit Diagnoses Diagnosis Encounter for screening for COVID-19 documented in this encounter Additional Health Concerns Infection Onset Date Last Indicated Resolved Time COVID - 19 02/20/2022 05/08/2022 05/18/2022 12:1 6 AM CDT documented as of this encounter Care Teams Cataract Lens Generator Relationship Specialty Start Date End Date Yoshi Naqvi MD [address] [place] [address] [address] [place] [address] PCP - General Family Medicine 03/02/20 Alma Delia Childers APRN, COMPUTER SPECIALIST [address] [place] [address] Nurse Practitioner Advanced Practice Nurse 10/15/22 documented as of this encounter
--- OUTSIDE RECORDS SUMMARY | 2024-03-18 22:17 | XMS_ITS | Encounter Summary ---
Author Organization [facility] Address [address] [place] [address] Phone Care Team Providers Care Drapery Seamstress Name Role Phone Yoshi Naqvi MD Primary Care Provider [phone] Alma Delia Childers APRN, HEEL BRUSHER Unavailable Encounter Details Date Type Department Care Team (Late st Contact Info) Description 04/24/2022 Lab Requisition [facility] Laboratory Services 1 [place] [address] Yoshi Naqvi MD [address] [place] [address] [facility] [address] [place] [address] Encounter for screening for COVID-19 Social History [...] Associated Diagnosis Comments SARS-COV-2 BY MOLECULAR Routine 04/24/2022 8:08 AM POSTMASTER RELIEF Encounter for screening for COVID-19 documented in this encounter Results * SARS-COV-2 BY MOLECULAR (04/24/2022 8:08 AM POSTMASTER RELIEF) SARSCOV2 NOT DETECTED (Referen ce Range for this test is Not Detected ) [facility] THERMOFISHER FAST DX 04/25/2022 8:01 AM POSTMASTER RELIEF [facility] Comment:This test was perfor med by a RT-PCR method. Other Non-Phlebotomy Collection / Unknown 04/24/2022 8:08 AM POSTMASTER RELIEF 04/24/2022 10:12 AM POSTMASTER RELIEF Narrative [facility] - 04/25/2022 8:01 AM POSTMASTER RELIEF Authorized Fact Sheets about this test for providers and patients are available at: https://www.fda.gov/medical-devices/xttyddlwi-ritbaviqln-qxwhaqm-devices/emergen -us e-authorizations Result On License Of [facility] us Yoshi Naqvi MD MICROBIOLOGY - GENERAL ORDERAB LES Final Result [facility] [address] [place] [address], documented in this encounter Visit Diagnoses Diagnosis Encounter for screening for COVID-19 documented in this encounter Additional Health Concerns Infection Onset Date Last Indicated Resolved Time COVID - 19 02/20/2022 05/08/2022 05/18/2022 12:1 6 AM CDT documented as of this encounter Care Teams Drapery Seamstress Relationship Specialty Start Date End Date Yoshi Naqvi MD [address] [place] [address] [address] [place] [address] PCP - General Family Medicine 03/02/20 Alma Delia Childers APRN, HEEL BRUSHER [address] [place] [address] Nurse Practitioner Advanced Practice Nurse 10/15/22 documented as of this encounter
--- OUTSIDE RECORDS SUMMARY | 2024-03-18 22:17 | XMS_ITS | Encounter Summary ---
Author Organization [facility] Address [address] [place] [address] Phone Care Team Providers Care Tanning Solution Maker Name Role Phone Yoshi Naqvi MD Primary Care Provider [phone] Alma Delia Childers APRN, HOOP PUNCH AND COILER OPERATOR HELPER Unavailable Encounter Details Date Type Department Care Team (Late st Contact Info) Description 03/06/2022 Lab Requisition [facility] Laboratory Services 1 [place] [address] Yoshi Naqvi MD [address] [place] [address] [facility] [address] [place] [address] Encounter for screening for COVID-19 Social History [...] Associated Diagnosis Comments SARS-COV-2 BY MOLECULAR Routine 03/06/2022 8:05 AM GARDE MANGER Encounter for screening for COVID-19 documented in this encounter Results * SARS-COV-2 BY MOLECULAR (03/06/2022 8:05 AM GARDE MANGER) SARSCOV2 NOT DETECTED (Referen ce Range for this test is Not Detected ) [facility] THERMOFISHER FAST DX 03/06/2022 10:53 PM GARDE MANGER [facility] Comment:This test was perfor med by a RT-PCR method. Other Non-Phlebotomy Collection / Unknown 03/06/2022 8:05 AM GARDE MANGER 03/06/2022 10:41 AM GARDE MANGER Narrative [facility] - 03/06/2022 10:53 PM GARDE MANGER Authorized Fact Sheets about this test for providers and patients are available at: https://www.fda.gov/medical-devices/bbmktllhi-ssdolrpmcu-ndpdood-devices/emergen -us e-authorizations Result [facility] us Yoshi Naqvi MD MICROBIOLOGY - GENERAL ORDERAB LES Final Result [facility] [address] [place] [address], documented in this encounter Visit Diagnoses Diagnosis Encounter for screening for COVID-19 documented in this encounter Additional Health Concerns Infection Onset Date Last Indicated Resolved Time COVID - 19 02/20/2022 05/08/2022 05/18/2022 12:1 6 AM CDT documented as of this encounter Care Teams Tanning Solution Maker Relationship Specialty Start Date End Date Yoshi Naqvi MD [address] [place] [address] [address] [place] [address] PCP - General Family Medicine 03/02/20 Alma Delia Childers APRN, HOOP PUNCH AND COILER OPERATOR HELPER [address] [place] [address] Nurse Practitioner Advanced Practice Nurse 10/15/22 documented as of this encounter
--- OUTSIDE RECORDS SUMMARY | 2024-03-18 22:17 | XMS_ITS | Encounter Summary ---
Author Organization [facility] Address [address] [place] [address] Phone Care Team Providers Care Seismograph Chief Name Role Phone Yoshi Naqvi MD Primary Care Provider [phone] Alma Delia Childers APRN, YOUTH CARE PROFESSIONAL Unavailable Encounter Details Date Type Department Care Team (Late st Contact Info) Description 05/30/2021 Lab Requisition [facility] Laboratory Services 1 [place] [address] Yoshi Naqvi MD [address] [place] [address] [facility] [address] [place] [address] Encounter for screening for COVID-19 Social History [...] Associated Diagnosis Comments SARS-COV-2 BY MOLECULAR Routine 05/30/2021 7:58 AM CDT Encounter for screening for COVID-19 documented in this encounter Results * SARS-COV-2 BY MOLECULAR (05/30/2021 7:58 AM CDT) SARSCOV2 NOT DETECTED (Referen ce Range for this test is Not Detected ) [facility] THERMOFISHER FAST DX 05/30/2021 11:28 PM CDT [facility] Comment:This test was perfor med by a RT-PCR method. Other Non-Phlebotomy Collection / Unknown 05/30/2021 7:58 AM CDT 05/30/2021 12:30 PM CDT Narrative [facility] - 05/30/2021 11:28 PM CDT Authorized Fact Sheets about this test for providers and patients are available at: https://www.fda.gov/medical-devices/glnnbgwpu-nntjwwtbfl-kmplmwc-devices/emergen -us e-authorizations us Yoshi Naqvi MD MICROBIOLOGY - GENERAL ORDERAB LES Final Result [facility] [address] [place] [address], documented in this encounter Visit Diagnoses Diagnosis Encounter for screening for COVID-19 documented in this encounter Additional Health Concerns Infection Onset Date Last Indicated Resolved Time COVID - 19 11/15/2020 08/01/2021 08/02/2021 2:04 PM CDT COVID - 19 Confirmed 08/01/2021 08/01/2021 022 12:16 AM CDT COVID - 19 10/31/2021 01/02/2022 01/12/2022 12:1 6 AM PIT OPERATOR COVID - 19 02/20/2022 05/08/2022 05/18/2022 12:1 6 AM CDT documented as of this encounter Care Teams Seismograph Chief Relationship Specialty Start Date End Date Yoshi Naqvi MD [address] [facility] [address] [place] [address] PCP - General Family Medicine 03/02/20 Alma Delia Childers APRN, YOUTH CARE PROFESSIONAL [address] [place] [address] Nurse Practitioner Advanced Practice Nurse 10/15/22 documented as of this encounter
--- OUTSIDE RECORDS SUMMARY | 2024-03-18 22:17 | XMS_ITS | Encounter Summary ---
Author Organization [facility] Address [address] [place] [address] Phone Care Team Providers Care Tenant Selector Name Role Phone Yoshi Naqvi MD Primary Care Provider [phone] Alma Delia Childers APRN, INHALATION THERAPY AIDE Unavailable Encounter Details Date Type Department Care Team (Late st Contact Info) Description 11/07/2021 Lab Requisition [facility] Laboratory Services 1 [place] [address] Yoshi Naqvi MD [address] [place] [address] [facility] 210 [place] [address] Encounter for screening for COVID-19 Social History [...] Associated Diagnosis Comments SARS-COV-2 BY MOLECULAR Routine 11/07/2021 7:46 AM CDT Encounter for screening for COVID-19 documented in this encounter Results * SARS-COV-2 BY MOLECULAR (11/07/2021 7:46 AM CDT) SARSCOV2 NOT DETECTED (Referen ce Range for this test is Not Detected ) [facility] THERMOFISHER FAST DX 11/07/2021 6:16 PM CDT [facility] Comment:This test was perfor med by a RT-PCR method. Other COVID 19 Collection / Unknown 11/07/2021 7:46 AM CDT 11/07/2021 9:31 AM CDT Narrative [facility] - 11/07/2021 6:16 PM CDT Authorized Fact Sheets about this test for providers and patients are available at: https://www.fda.gov/medical-devices/ixqcrbrri-ejjzfnrpnf-cxgumfj-devices/emergen -us e-authorizations us Yoshi Naqvi MD MICROBIOLOGY - GENERAL ORDERAB LES Final Result [facility] [address] [place] [address], documented in this encounter Visit Diagnoses Diagnosis Encounter for screening for COVID-19 documented in this encounter Additional Health Concerns Infection Onset Date Last Indicated Resolved Time COVID - 19 10/31/2021 01/02/2022 01/12/2022 12:1 6 AM CARRIER LOADER COVID - 19 02/20/2022 05/08/2022 05/18/2022 12:1 6 AM CDT documented as of this encounter Care Teams Tenant Selector Relationship Specialty Start Date End Date Yoshi Naqvi MD [address] [place] [address] [address] [place] [address] PCP - General Family Medicine 03/02/20 Alma Delia Childers APRN, INHALATION THERAPY AIDE [address] [place] [address] Nurse Practitioner Advanced Practice Nurse 10/15/22 documented as of this encounter
--- OUTSIDE RECORDS SUMMARY | 2024-03-18 22:17 | XMS_ITS | Encounter Summary ---
Author Organization [facility] Address [address] [place] [address] Phone Care Team Providers Care Public Speaker Name Role Phone Yoshi Naqvi MD Primary Care Provider Alma Delia Childers APRN, SALES CONSULTING DIRECTOR Unavailable Encounter Details Date Type Department Care Team (Late st Contact Info) Description 05/23/2021 Lab Requisition [facility] Laboratory Services 1 [place] [address] Yoshi Naqvi MD [address] [place] [address] [facility] [address] [place] [address] Encounter for screening for COVID-19 Social History [...] Associated Diagnosis Comments SARS-COV-2 BY MOLECULAR Routine 05/23/2021 7:47 AM CDT Encounter for screening for COVID-19 documented in this encounter Results * SARS-COV-2 BY MOLECULAR (05/23/2021 7:47 AM CDT) SARSCOV2 NOT DETECTED (Referen ce Range for this test is Not Detected ) [facility] THERMOFISHER FAST DX 05/24/2021 12:26 AM CDT [facility] Comment:This test was perfor med by a RT-PCR method. Other No Phlebotomy Charged / Unknown 05/23/2021 7:47 AM CDT 05/23/2021 1:00 PM CDT Narrative [facility] - 05/24/2021 12:26 AM CDT Authorized Fact Sheets about this test for providers and patients are available at: https://www.fda.gov/medical-devices/djgplwvdb-gejttjkxth-ayjlbkh-devices/emergen -us e-authorizations us Yoshi Naqvi MD MICROBIOLOGY - GENERAL ORDERAB LES Final Result [facility] [address] [place] [address], documented in this encounter Visit Diagnoses Diagnosis Encounter for screening for COVID-19 documented in this encounter Additional Health Concerns Infection Onset Date Last Indicated Resolved Time COVID - 19 11/15/2020 08/01/2021 08/02/2021 2:04 PM CDT COVID - 19 Confirmed 08/01/2021 08/01/2021 022 12:16 AM CDT COVID - 19 10/31/2021 01/02/2022 01/12/2022 12:1 6 AM AQUARIUM TANK ATTENDANT COVID - 19 02/20/2022 05/08/2022 05/18/2022 12:1 6 AM CDT documented as of this encounter Care Teams Public Speaker Relationship Specialty Start Date End Date Yoshi Naqvi MD [address] [facility] [address] [place] [address] PCP - General Family Medicine 03/02/20 Alma Delia Childers, HORIZONTAL BORING MILL OPERATOR, SALES CONSULTING DIRECTOR [address] [place] [address] Nurse Practitioner Advanced Practice Nurse 10/15/22 documented as of this encounter
--- OUTSIDE RECORDS SUMMARY | 2024-03-18 22:17 | XMS_ITS | Encounter Summary ---
Author Organization [facility] Address [address] [place] [address] Phone Care Team Providers Care Traveling Engineer Name Role Phone Yoshi Naqvi MD Primary Care Provider [phone] Alma Delia Childers APRN, PARTS DATA WRITER Unavailable Encounter Details Date Type Department Care Team (Late st Contact Info) Description 06/20/2021 Lab Requisition [facility] Laboratory Services 1 [place] [address] Yoshi Naqvi MD [address] [place] [address] [facility] [address] [place] [address] Encounter for screening for COVID-19 Social History [...] Associated Diagnosis Comments SARS-COV-2 BY MOLECULAR Routine 06/20/2021 8:14 AM CDT Encounter for screening for COVID-19 documented in this encounter Results * SARS-COV-2 BY MOLECULAR (06/20/2021 8:14 AM CDT) SARSCOV2 NOT DETECTED (Referen ce Range for this test is Not Detected ) [facility] THERMOFISHER FAST DX 06/21/2021 5:53 PM CDT [facility] Comment:This test was perfor med by a RT-PCR method. Other Non-Phlebotomy Collection / Unknown 06/20/2021 8:14 AM CDT 06/20/2021 3:03 PM CDT Narrative [facility] - 06/21/2021 5:53 PM CDT Authorized Fact Sheets about this test for providers and patients are available at: https://www.fda.gov/medical-devices/owdgrzcnq-fqoafwmjms-jbvojwv-devices/emergen -us e-authorizations us Yoshi Naqvi MD MICROBIOLOGY - GENERAL ORDERAB LES Final Result [facility] [address] [place] [address], documented in this encounter Visit Diagnoses Diagnosis Encounter for screening for COVID-19 documented in this encounter Additional Health Concerns Infection Onset Date Last Indicated Resolved Time COVID - 19 11/15/2020 08/01/2021 08/02/2021 2:04 PM CDT COVID - 19 Confirmed 08/01/2021 08/01/2021 022 12:16 AM CDT COVID - 19 10/31/2021 01/02/2022 01/12/2022 12:1 6 AM CONSUMER LOAN PROCESSOR COVID - 19 02/20/2022 05/08/2022 05/18/2022 12:1 6 AM CDT documented as of this encounter Care Teams Traveling Engineer Relationship Specialty Start Date End Date Yoshi Naqvi MD [address] [facility] [address] [place] [address] PCP - General Family Medicine 03/02/20 Alma Delia Childers APRN, PARTS DATA WRITER [address] [place] [address] Nurse Practitioner Advanced Practice Nurse 10/15/22 documented as of this encounter
--- OUTSIDE RECORDS SUMMARY | 2024-03-18 22:17 | XMS_ITS | Encounter Summary ---
Author Organization [facility] Address [address] [place] [address] Phone Care Team Providers Care Stitch Marker Name Role Phone Yoshi Naqvi MD Primary Care Provider Alma Delia Childers APRN, WINDROWER OPERATOR Unavailable Encounter Details Date Type Department Care Team (Late st Contact Info) Description 07/11/2021 Lab Requisition [facility] Laboratory Services 1 [place] [address] Yoshi Naqvi MD [address] [place] [address] [facility] 210 [place] [address] Encounter for screening for COVID-19 Social History [...] Associated Diagnosis Comments SARS-COV-2 BY MOLECULAR Routine 07/11/2021 8:22 AM CDT Encounter for screening for COVID-19 documented in this encounter Results * SARS-COV-2 BY MOLECULAR (07/11/2021 8:22 AM CDT) SARSCOV2 NOT DETECTED (Referen ce Range for this test is Not Detected ) [facility] THERMOFISHER FAST DX 07/12/2021 6:32 PM CDT [facility] Comment:This test was perfor med by a RT-PCR method. Other Non-Phlebotomy Collection / Unknown 07/11/2021 8:22 AM CDT 07/11/2021 10:50 AM CDT Narrative [facility] - 07/12/2021 6:32 PM CDT Authorized Fact Sheets about this test for providers and patients are available at: https://www.fda.gov/medical-devices/eoggsglqe-ltciuacbdx-pwldigr-devices/emergen -us e-authorizations us Yoshi Naqvi MD MICROBIOLOGY - GENERAL ORDERAB LES Final Result [facility] [address] [place] [address], documented in this encounter Visit Diagnoses Diagnosis Encounter for screening for COVID-19 documented in this encounter Additional Health Concerns Infection Onset Date Last Indicated Resolved Time COVID - 19 11/15/2020 08/01/2021 08/02/2021 2:04 PM CDT COVID - 19 Confirmed 08/01/2021 08/01/2021 022 12:16 AM CDT COVID - 19 10/31/2021 01/02/2022 01/12/2022 12:1 6 AM ANIMAL HUSBANDRY TEACHER COVID - 19 02/20/2022 05/08/2022 05/18/2022 12:1 6 AM CDT documented as of this encounter Care Teams Stitch Marker Relationship Specialty Start Date End Date Yoshi Naqvi MD [address] [facility] [address] [place] [address] PCP - General Family Medicine 03/02/20 Alma Delia Childers APRN, WINDROWER OPERATOR [address] [place] [address] Nurse Practitioner Advanced Practice Nurse 10/15/22 documented as of this encounter
--- OUTSIDE RECORDS SUMMARY | 2024-03-18 22:17 | XMS_ITS | Encounter Summary ---
Author Organization [facility] Address [address] [place] [address] Phone Care Team Providers Care Production Control Manager Name Role Phone Yoshi Naqvi MD Primary Care Provider [phone] Alma Delia Childers APRN, REGISTRAR MUSEUM Unavailable Encounter Details Date Type Department Care Team (Late st Contact Info) Description 05/01/2022 Lab Requisition [facility] Laboratory Services 1 [place] [address] Yoshi Naqvi MD [address] [place] [address] [facility] 210 [place] [address] Encounter for screening for COVID-19 Social History [...] Associated Diagnosis Comments SARS-COV-2 BY MOLECULAR Routine 05/01/2022 7:50 AM FARM ADVISER Encounter for screening for COVID-19 documented in this encounter Results * SARS-COV-2 BY MOLECULAR (05/01/2022 7:50 AM FARM ADVISER) SARSCOV2 NOT DETECTED (Referen ce Range for this test is Not Detected ) [facility] THERMOFISHER FAST DX 05/01/2022 7:37 PM FARM ADVISER [facility] Comment:This test was perfor med by a RT-PCR method. Other Non-Phlebotomy Collection / Unknown 05/01/2022 7:50 AM FARM ADVISER 05/01/2022 10:18 AM FARM ADVISER Narrative [facility] - 05/01/2022 7:37 PM FARM ADVISER Authorized Fact Sheets about this test for providers and patients are available at: https://www.fda.gov/medical-devices/tsaxmwcui-mbcfnvsvph-fvvwrnv-devices/emergen -us e-authorizations Result [facility] us Yoshi Naqvi MD MICROBIOLOGY - GENERAL ORDERAB LES Final Result [facility] [address] [place] [address], documented in this encounter Visit Diagnoses Diagnosis Encounter for screening for COVID-19 documented in this encounter Additional Health Concerns Infection Onset Date Last Indicated Resolved Time COVID - 19 02/20/2022 05/08/2022 05/18/2022 12:1 6 AM CDT documented as of this encounter Care Teams Production Control Manager Relationship Specialty Start Date End Date Yoshi Naqvi MD [address] [place] [address] [address] [place] [address] PCP - General Family Medicine 03/02/20 Alma Delia Childers APRN, REGISTRAR MUSEUM [address] [place] [address] Nurse Practitioner Advanced Practice Nurse 10/15/22 documented as of this encounter
--- OUTSIDE RECORDS SUMMARY | 2024-03-18 22:17 | XMS_ITS | Encounter Summary ---
Author Organization [facility] Address [address] [place] [address] Phone Care Team Providers Care Tank Farm Attendant Name Role Phone Yoshi Naqvi MD Primary Care Provider [phone] Alma Delia Childers APRN, FIRE PATROLLER Unavailable Encounter Details Date Type Department Care Team (Late st Contact Info) Description 08/01/2021 Lab Requisition [facility] Laboratory Services 1 [place] [address] Yoshi Naqvi MD [address] [place] [address] [facility] 210 [place] [address] Encounter for screening for COVID-19 Social History [...] Associated Diagnosis Comments SARS-COV-2 BY MOLECULAR Routine 08/01/2021 8:19 AM CDT Encounter for screening for COVID-19 documented in this encounter Results * (ABNORMAL) SARS-COV-2 BY MOLECULAR (08/01/2021 8:19 AM CDT) SARSCOV2 DETECTED( A) (Referenc e Range for this test is Not Detected) [facility] THERMOFISHER FAST DX 08/02/2021 2:04 PM CDT [facility] Comment:This test was perfor med by a RT-PCR method. Other Non-Phlebotomy Collection / Unknown 08/01/2021 8:19 AM CDT 08/01/2021 1:19 PM CDT Narrative [facility] - 08/02/2021 2:04 PM CDT Authorized Fact Sheets about this test for providers and patients are available at: https://www.fda.gov/medical-devices/dsfzhkvsh-alcwxrvzrn-usppcfn-devices/emergen -us e-authorizations us Yoshi Naqvi MD MICROBIOLOGY - GENERAL ORDERAB LES Final Result [facility] [address] [place] [address], documented in this encounter Visit Diagnoses Diagnosis Encounter for screening for COVID-19 documented in this encounter Additional Health Concerns Infection Onset Date Last Indicated Resolved Time COVID - 19 11/15/2020 08/01/2021 08/02/2021 2:04 PM CDT COVID - 19 Confirmed 08/01/2021 08/01/2021 022 12:16 AM CDT COVID - 19 10/31/2021 01/02/2022 01/12/2022 12:1 6 AM FORMING DEPARTMENT END FINDER COVID - 19 02/20/2022 05/08/2022 05/18/2022 12:1 6 AM CDT documented as of this encounter Care Teams Tank Farm Attendant Relationship Specialty Start Date End Date Yoshi Naqvi MD [address] [facility] [address] [place] [address] PCP - General Family Medicine 03/02/20 Alma Delia Childers APRN, FIRE PATROLLER [address] [place] [address] Nurse Practitioner Advanced Practice Nurse 10/15/22 documented as of this encounter
--- OUTSIDE RECORDS SUMMARY | 2024-03-18 22:17 | XMS_ITS | Encounter Summary ---
Author Organization [facility] Address [address] [place] [address] Phone Care Team Providers Care Toy Assembler Wood Name Role Phone Yoshi Naqvi MD Primary Care Provider [phone] Alma Delia Childers APRN, HEALTH ANALYTICS CONSULTANT Unavailable Encounter Details Date Type Department Care Team (Late st Contact Info) Description 02/27/2022 Lab Requisition [facility] Laboratory Services 1 [place] [address] Yoshi Naqvi MD [address] [place] [address] [facility] 210 [place] [address] Encounter for screening for COVID-19 Social History [...] Associated Diagnosis Comments SARS-COV-2 BY MOLECULAR Routine 02/27/2022 8:00 AM DIGITAL SALES PLANNER Encounter for screening for COVID-19 documented in this encounter Results * SARS-COV-2 BY MOLECULAR (02/27/2022 8:00 AM DIGITAL SALES PLANNER) SARSCOV2 NOT DETECTED (Referen ce Range for this test is Not Detected ) [facility] THERMOFISHER FAST DX 02/27/2022 9:20 PM DIGITAL SALES PLANNER [facility] Comment:This test was perfor med by a RT-PCR method. Other No Phlebotomy Charged / Unknown 02/27/2022 8:00 AM DIGITAL SALES PLANNER 02/27/2022 10:20 AM DIGITAL SALES PLANNER Narrative [facility] - 02/27/2022 9:20 PM DIGITAL SALES PLANNER Authorized Fact Sheets about this test for providers and patients are available at: https://www.fda.gov/medical-devices/cmggvmriq-lkrbvqbpuv-qjgufbm-devices/emergen -us e-authorizations Result [facility] us oYshi Naqvi MD MICROBIOLOGY - GENERAL ORDERAB LES Final Result Performing Organization Address City/State/[facility] Co de Phone Number [facility] [address] [place] [address], documented in this encounter Visit Diagnoses Diagnosis Encounter for screening for COVID-19 documented in this encounter Additional Health Concerns Infection Onset Date Last Indicated Resolved Time COVID - 19 02/20/2022 05/08/2022 05/18/2022 12:1 6 AM CDT documented as of this encounter Care Teams Toy Assembler Wood Relationship Specialty Start Date End Date Yoshi Naqvi MD [address] [place] [address] [address] [place] [address] PCP - General Family Medicine 03/02/20 Alma Delia Childers APRN, HEALTH ANALYTICS CONSULTANT [address] [place] [address] Nurse Practitioner Advanced Practice Nurse 10/15/22 documented as of this encounter
--- OUTSIDE RECORDS SUMMARY | 2024-03-18 22:17 | XMS_ITS | Encounter Summary ---
Author Organization [facility] Address [address] [place] [address] Phone Care Team Providers Care Manager Disaster Recovery Name Role Phone Yoshi Naqvi MD Primary Care Provider [phone] Alma Delia Childers APRN, VETERANS ADVISER Unavailable Encounter Details Date Type Department Care Team (Late st Contact Info) Description 06/13/2021 Lab Requisition [facility] Laboratory Services 1 [place] [address] Yoshi Naqvi MD [address] [place] [address] [facility] [address] [place] [address] Encounter for screening for COVID-19 Social History [...] Associated Diagnosis Comments SARS-COV-2 BY MOLECULAR Routine 06/13/2021 8:49 AM CDT Encounter for screening for COVID-19 documented in this encounter Results * SARS-COV-2 BY MOLECULAR (06/13/2021 8:49 AM CDT) SARSCOV2 NOT DETECTED (Referen ce Range for this test is Not Detected ) [facility] THERMOFISHER FAST DX 06/13/2021 11:12 PM CDT [facility] Comment:This test was perfor med by a RT-PCR method. Other Non-Phlebotomy Collection / Unknown 06/13/2021 8:49 AM CDT 06/13/2021 2:34 PM CDT Narrative [facility] - 06/13/2021 11:12 PM CDT Authorized Fact Sheets about this test for providers and patients are available at: https://www.fda.gov/medical-devices/ednynzxze-qxhogmmmje-qsdptvd-devices/emergen -us e-authorizations us Yoshi Naqvi MD MICROBIOLOGY - GENERAL ORDERAB LES Final Result [facility] [address] [place] [address], documented in this encounter Visit Diagnoses Diagnosis Encounter for screening for COVID-19 documented in this encounter Additional Health Concerns Infection Onset Date Last Indicated Resolved Time COVID - 19 11/15/2020 08/01/2021 08/02/2021 2:04 PM CDT COVID - 19 Confirmed 08/01/2021 08/01/2021 022 12:16 AM CDT COVID - 19 10/31/2021 01/02/2022 01/12/2022 12:1 6 AM POST ANESTHESIA NURSE COVID - 19 02/20/2022 05/08/2022 05/18/2022 12:1 6 AM CDT documented as of this encounter Care Teams Manager Disaster Recovery Relationship Specialty Start Date End Date Yoshi Naqvi MD [address] [facility] [address] [place] [address] PCP - General Family Medicine 03/02/20 Alma Delia Childers APRN, VETERANS ADVISER #[address] [place] [address] Nurse Practitioner Advanced Practice Nurse 10/15/22 documented as of this encounter
--- OUTSIDE RECORDS SUMMARY | 2024-03-18 22:17 | XMS_ITS | Encounter Summary ---
Author Organization [facility] Address [address] [place] [address] Phone Care Team Providers Care Material Loader Name Role Phone Yoshi Naqvi MD Primary Care Provider [phone] Alma Delia Childers APRN, DIRECTOR OF CASINO Unavailable Encounter Details Date Type Department Care Team (Late st Contact Info) Description 03/13/2022 Lab Requisition [facility] Laboratory Services 1 [place] [address] Yoshi Naqvi MD [address] [place] [address] [facility] [address] [place] [address] Encounter for screening for COVID-19 Social History [...] Associated Diagnosis Comments SARS-COV-2 BY MOLECULAR Routine 03/13/2022 7:55 AM ROBOTICS TECHNICIAN Encounter for screening for COVID-19 documented in this encounter Results * SARS-COV-2 BY MOLECULAR (03/13/2022 7:55 AM ROBOTICS TECHNICIAN) SARSCOV2 NOT DETECTED (Referen ce Range for this test is Not Detected ) [facility] THERMOFISHER FAST DX 03/13/2022 8:36 PM ROBOTICS TECHNICIAN [facility] Comment:This test was perfor med by a RT-PCR method. Other Non-Phlebotomy Collection / Unknown 03/13/2022 7:55 AM ROBOTICS TECHNICIAN 03/13/2022 10:06 AM ROBOTICS TECHNICIAN Narrative [facility] - 03/13/2022 8:36 PM ROBOTICS TECHNICIAN Authorized Fact Sheets about this test for providers and patients are available at: https://www.fda.gov/medical-devices/kvouvdguq-drgwfwzfer-rsgzwvk-devices/emergen -us e-authorizations Result Pending [facility] us Yoshi Naqvi MD MICROBIOLOGY - GENERAL ORDERAB LES Final Result [facility] [address] [place] [address], documented in this encounter Visit Diagnoses Diagnosis Encounter for screening for COVID-19 documented in this encounter Additional Health Concerns Infection Onset Date Last Indicated Resolved Time COVID - 19 02/20/2022 05/08/2022 05/18/2022 12:1 6 AM CDT documented as of this encounter Care Teams Material Loader Relationship Specialty Start Date End Date Yoshi Naqvi MD [address] [place] [address] [address] [place] [address] PCP - General Family Medicine 03/02/20 Alma Delia Childers APRN, DIRECTOR OF CASINO [address] [place] [address] Nurse Practitioner Advanced Practice Nurse 10/15/22 documented as of this encounter
--- OUTSIDE RECORDS SUMMARY | 2024-03-18 22:17 | XMS_ITS | Encounter Summary ---
Author Organization [facility] Address [address] [place] [address] Phone Care Team Providers Care Casting Coordinator Name Role Phone Yoshi Naqvi MD Primary Care Provider [phone] Alma Delia Childers APRN, GRUBBER Unavailable Encounter Details Date Type Department Care Team (Late st Contact Info) Description 10/31/2021 Lab Requisition [facility] Laboratory Services 1 [place] [address] Yoshi Naqvi MD [address] [place] [address] [facility] [address] [place] [address] Encounter for screening for COVID-19 Social History [...] Associated Diagnosis Comments SARS-COV-2 BY MOLECULAR Routine 10/31/2021 7:42 AM CDT Encounter for screening for COVID-19 documented in this encounter Results * SARS-COV-2 BY MOLECULAR (10/31/2021 7:42 AM CDT) SARSCOV2 NOT DETECTED (Referen ce Range for this test is Not Detected ) [facility] THERMOFISHER FAST DX 11/01/2021 8:21 AM CDT [facility] Comment:This test was perfor med by a RT-PCR method. Other COVID 19 Home Health/ [facility] Care [facility] Collection / Unknown 10/31/2021 7:42 AM CDT 10/31/2021 1:24 PM CDT Narrative [facility] - 11/01/2021 8:21 AM CDT Authorized Fact Sheets about this test for providers and patients are available at: https://www.fda.gov/medical-devices/zjpejixdw-yaulvhyavx-ljxyhfc-devices/emergen -us e-authorizations us Yoshi Naqvi MD MICROBIOLOGY - GENERAL ORDERAB LES Final Result [facility] [address] [place] [address], documented in this encounter Visit Diagnoses Diagnosis Encounter for screening for COVID-19 documented in this encounter Additional Health Concerns Infection Onset Date Last Indicated Resolved Time COVID - 19 10/31/2021 01/02/2022 01/12/2022 12:1 6 AM CORE SETTER COVID - 19 02/20/2022 05/08/2022 05/18/2022 12:1 6 AM CDT documented as of this encounter Care Teams Casting Coordinator Relationship Specialty Start Date End Date Yoshi Naqvi MD [address] [place] [address] [address] [place] [address] PCP - General Family Medicine 03/02/20 Alma Delia Childers APRN, GRUBBER [address] [place] [address] Nurse Practitioner Advanced Practice Nurse 10/15/22 documented as of this encounter
--- OUTSIDE RECORDS SUMMARY | 2024-03-18 22:17 | XMS_ITS | Encounter Summary ---
Author Organization [facility] Address [address] [place] [address] Phone Care Team Providers Care Marketing Lead Name Role Phone Yoshi Naqvi MD Primary Care Provider [phone] Alma Delia Childers APRN, WELLNESS SPECIALIST Unavailable Encounter Details Date Type Department Care Team (Late st Contact Info) Description 07/04/2021 Lab Requisition [facility] Laboratory Services 1 [place] [address] Yoshi Naqvi MD [address] [place] [address] [facility] 210 [place] [address] Encounter for screening for COVID-19 Social History [...] on file documented as of this encounter Visit Diagnoses Diagnosis Encounter for screening for COVID-19 documented in this encounter Additional Health Concerns Infection Onset Date Last Indicated Resolved Time COVID - 19 11/15/2020 08/01/2021 08/02/2021 2:04 PM CDT COVID - 19 Confirmed 08/01/2021 08/01/2021 022 12:16 AM CDT COVID - 19 10/31/2021 01/02/2022 01/12/2022 12:1 6 AM PROPERTY COORDINATOR COVID - 19 02/20/2022 05/08/2022 05/18/2022 12:1 6 AM CDT documented as of this encounter Care Teams Marketing Lead Relationship Specialty Start Date End Date Yoshi Naqvi MD [address] [facility] [address] [place] [address] PCP - General Family Medicine 03/02/20 Alma Delia Childers APRN, WELLNESS SPECIALIST [address] [place] [address] Nurse Practitioner Advanced Practice Nurse 10/15/22 documented as of this encounter
--- OUTSIDE RECORDS SUMMARY | 2024-03-18 22:17 | XMS_ITS | Encounter Summary ---
Author Organization [facility] Address [address] [place] [address] Phone Care Team Providers Care Pediatric Geneticist Name Role Phone Yoshi Naqvi MD Primary Care Provider [phone] Alma Delia Childers APRN, TECH BRAZER TESTER Unavailable Encounter Details Date Type Department Care Team (Late st Contact Info) Description 06/06/2021 Lab Requisition [facility] Laboratory Services 1 [place] [address] Yoshi Naqvi MD [address] [place] [address] [facility] 210 [place] [address] Encounter for screening for COVID-19 Social History [...] Associated Diagnosis Comments SARS-COV-2 BY MOLECULAR Routine 06/06/2021 8:13 AM CDT Encounter for screening for COVID-19 documented in this encounter Results * SARS-COV-2 BY MOLECULAR (06/06/2021 8:13 AM CDT) SARSCOV2 NOT DETECTED (Referen ce Range for this test is Not Detected ) [facility] THERMOFISHER FAST DX 06/07/2021 6:24 AM CDT [facility] Comment:This test was perfor med by a RT-PCR method. Other Non-Phlebotomy Collection / Unknown 06/06/2021 8:13 AM CDT 06/06/2021 12:59 PM CDT Narrative [facility] - 06/07/2021 6:24 AM CDT Authorized Fact Sheets about this test for providers and patients are available at: https://www.fda.gov/medical-devices/pakpuuxda-qmpiougvbz-xvihrkr-devices/emergen -us e-authorizations us Yoshi Naqvi MD MICROBIOLOGY - GENERAL ORDERAB LES Final Result [facility] [address] [place] [address], documented in this encounter Visit Diagnoses Diagnosis Encounter for screening for COVID-19 documented in this encounter Additional Health Concerns Infection Onset Date Last Indicated Resolved Time COVID - 19 11/15/2020 08/01/2021 08/02/2021 2:04 PM CDT COVID - 19 Confirmed 08/01/2021 08/01/2021 022 12:16 AM CDT COVID - 19 10/31/2021 01/02/2022 01/12/2022 12:1 6 AM DOVETAILER COVID - 19 02/20/2022 05/08/2022 05/18/2022 12:1 6 AM CDT documented as of this encounter Care Teams Pediatric Geneticist Relationship Specialty Start Date End Date Yoshi Naqvi MD [address] [facility] [address] [place] [address] PCP - General Family Medicine 03/02/20 Alma Delia Childers APRN, TECH BRAZER TESTER [address] [place] [address] Nurse Practitioner Advanced Practice Nurse 10/15/22 documented as of this encounter
--- OUTSIDE RECORDS SUMMARY | 2024-03-18 22:18 | XMS_ITS | Encounter Summary ---
Author Organization [facility] Address [address] [place] [address] Phone Care Team Providers Care Brickmason Contractor Name Role Phone Yoshi Naqvi MD Primary Care Provider [phone] Alma Delia Childers APRN, CARDROOM HAND Unavailable Encounter Details Date Type Department Care Team (Late st Contact Info) Description 02/07/2021 Lab Requisition [facility] Laboratory Services 1 [place] [address] Yoshi Naqvi MD [address] [place] [address] [facility] 210 [place] [address] Encounter for screening for COVID-19 Social History [...] Associated Diagnosis Comments SARS-COV-2 BY MOLECULAR Routine 02/07/2021 8:19 AM SLACKMAN Encounter for screening for COVID-19 documented in this encounter Results * SARS-COV-2 BY MOLECULAR (02/07/2021 8:19 AM SLACKMAN) SARSCOV2 NOT DETECTED (Referen ce Range for this test is Not Detected ) [facility] THERMOFISHER FAST DX 02/08/2021 6:01 PM SLACKMAN [facility] Comment:This test was perfor med by a RT-PCR method. Other No Phlebotomy Charged / Unknown 02/07/2021 8:19 AM SLACKMAN 02/07/2021 1:24 PM SLACKMAN Narrative [facility] - 02/08/2021 6:01 PM SLACKMAN Authorized Fact Sheets about this test for providers and patients are available at: https://www.fda.gov/medical-devices/sprpkailq-enzxsydlnq-iwmvjue-devices/emergen -us e-authorizations us Yoshi Naqvi MD MICROBIOLOGY - GENERAL ORDERAB LES Final Result [facility] [address] [place] [address], documented in this encounter Visit Diagnoses Diagnosis Encounter for screening for COVID-19 documented in this encounter Additional Health Concerns Infection Onset Date Last Indicated Resolved Time COVID - 19 11/15/2020 08/01/2021 08/02/2021 2:04 PM CDT COVID - 19 Confirmed 08/01/2021 08/01/2021 022 12:16 AM CDT COVID - 19 10/31/2021 01/02/2022 01/12/2022 12:1 6 AM SLACKMAN COVID - 19 02/20/2022 05/08/2022 05/18/2022 12:1 6 AM CDT documented as of this encounter Care Teams Brickmason Contractor Relationship Specialty Start Date End Date Yoshi Naqvi MD [address] [facility] [address] [place] [address] PCP - General Family Medicine 03/02/20 Alma Delia Childers APRN, CARDROOM HAND [address] [place] [address] Nurse Practitioner Advanced Practice Nurse 10/15/22 documented as of this encounter
--- OUTSIDE RECORDS SUMMARY | 2024-03-18 22:18 | XMS_ITS | Encounter Summary ---
Author Organization [facility] Address [address] [place] [address] Phone Care Team Providers Care Armament Aircraft Mechanic Name Role Phone Yoshi Naqvi MD Primary Care Provider [phone] Alma Delia Childers APRN, SENIOR IT RECRUITER Unavailable Encounter Details Date Type Department Care Team (Late st Contact Info) Description 11/22/2020 Lab Requisition [facility] Laboratory Services 1 [place] [address] Yoshi Naqvi MD [address] [place] [address] [facility] 210 [place] [address] Encounter for screening for COVID-19 Social History [...] Associated Diagnosis Comments SARS-COV-2 BY MOLECULAR Routine 11/22/2020 7:31 AM CDT Encounter for screening for COVID-19 documented in this encounter Results * SARS-COV-2 BY MOLECULAR (11/22/2020 7:31 AM CDT) SARSCOV2 NOT DETECTED (Referen ce Range for this test is Not Detected ) [facility] THERMOFISHER FAST DX 11/23/2020 6:36 AM CDT [facility] Comment:This test was perfor med by a RT-PCR method. Other No Phlebotomy Charged / Unknown 11/22/2020 7:31 AM CDT 11/22/2020 10:54 AM CDT Narrative [facility] - 11/23/2020 6:36 AM CDT Authorized Fact Sheets about this test for providers and patients are available at: https://www.fda.gov/medical-devices/ocgfloblp-enklxpxbry-elhlnyn-devices/emergen -us e-authorizations us Yoshi Naqvi MD MICROBIOLOGY - GENERAL ORDERAB LES Final Result [facility] [address] [place] [address], documented in this encounter Visit Diagnoses Diagnosis Encounter for screening for COVID-19 documented in this encounter Additional Health Concerns Infection Onset Date Last Indicated Resolved Time COVID - 19 11/15/2020 08/01/2021 08/02/2021 2:04 PM CDT COVID - 19 Confirmed 08/01/2021 08/01/2021 022 12:16 AM CDT COVID - 19 10/31/2021 01/02/2022 01/12/2022 12:1 6 AM ROOM SERVICE BELLHOP COVID - 19 02/20/2022 05/08/2022 05/18/2022 12:1 6 AM CDT documented as of this encounter Care Teams Armament Aircraft Mechanic Relationship Specialty Start Date End Date Yoshi Naqvi MD 4 [facility] [address] [place] [address] PCP - General Family Medicine 03/02/20 Alma Delia Childers, PATIENT SERVICES SPECIALIST, SENIOR IT RECRUITER [address] [place] [address] Nurse Practitioner Advanced Practice Nurse 10/15/22 documented as of this encounter
--- OUTSIDE RECORDS SUMMARY | 2024-03-18 22:18 | XMS_ITS | Encounter Summary ---
Author Organization [facility] Address [address] [place] [address] Phone Care Team Providers Care Digital Project Coordinator Name Role Phone Yoshi Naqvi MD Primary Care Provider [phone] Alma Delia Childers APRN, HOME STAGER Unavailable Encounter Details Date Type Department Care Team (Late st Contact Info) Description 03/14/2021 Lab Requisition [facility] Services 1 [place] [address] Yoshi Naqvi MD [address] [place] [address] [facility] [address] [place] [address] Encounter for screening for COVID-19 Social History [...] Associated Diagnosis Comments SARS-COV-2 BY MOLECULAR Routine 03/14/2021 8:22 AM ADDICTION SPECIALIST Encounter for screening for COVID-19 documented in this encounter Results * SARS-COV-2 BY MOLECULAR (03/14/2021 8:22 AM ADDICTION SPECIALIST) SARSCOV2 NOT DETECTED (Referen ce Range for this test is Not Detected ) [facility] THERMOFISHER FAST DX 03/16/2021 9:45 AM ADDICTION SPECIALIST [facility] Comment:This test was perfor med by a RT-PCR method. Other Non-Phlebotomy Collection / Unknown 03/14/2021 8:22 AM ADDICTION SPECIALIST 03/14/2021 2:42 PM ADDICTION SPECIALIST Narrative [facility] - 03/16/2021 9:45 AM ADDICTION SPECIALIST Authorized Fact Sheets about this test for providers and patients are available at: https://www.fda.gov/medical-devices/rbdlzcppy-evrofybyrm-uauuiyo-devices/emergen -us e-authorizations us Yoshi Naqvi MD MICROBIOLOGY - GENERAL ORDERAB LES Final Result [facility] [address] [place] [address], documented in this encounter Visit Diagnoses Diagnosis Encounter for screening for COVID-19 documented in this encounter Additional Health Concerns Infection Onset Date Last Indicated Resolved Time COVID - 19 11/15/2020 08/01/2021 08/02/2021 2:04 PM CDT COVID - 19 Confirmed 08/01/2021 08/01/2021 022 12:16 AM CDT COVID - 19 10/31/2021 01/02/2022 01/12/2022 12:1 6 AM ADDICTION SPECIALIST COVID - 19 02/20/2022 05/08/2022 05/18/2022 12:1 6 AM CDT documented as of this encounter Care Teams Digital Project Coordinator Relationship Specialty Start Date End Date Yoshi Naqvi MD [address] [facility] [address] [place] [address] PCP - General Family Medicine 03/02/20 Alma Delia Childers LIVESTOCK INSPECTOR, HOME STAGER [address] [place] [address] Nurse Practitioner Advanced Practice Nurse 10/15/22 documented as of this encounter
--- OUTSIDE RECORDS SUMMARY | 2024-03-18 22:18 | XMS_ITS | Referral Summary ---
Author Organization [facility] Address [address] [place] [address] Care Team Providers Care Lead Assistant Manager Name Role Phone Yoshi Naqvi MD Primary Care Provider [phone] Encounters Date Type Department Care Team Description 03/15/2024 Telephone [facility] [facility] [address] [place] [phone] Ofelia Álvarez 03/15/2024 9:45 AM MANUFACTURING SR ENGINEER Office Visit [facility] - [facility] [address] [facility] [address] [place] [address] Nunu Kauffman DO Conductive hearing loss, bilateral (Primary Dx); Impacted cerumen, bilateral 02/04/2024 9:30 AM MANUFACTURING SR ENGINEER Ancillary Procedure [facility] [address] [place] [phone] SSS (sick sinus syndrome) (CMS/HCC) (HCC); Cardiac pacemaker in situ 02/03/2024 Orders Only [facility] [address] [place] [phone] EdgarOfelia rasheed SSS (sick sinus syndrome) (CMS/HCC) (HCC) (Primary Dx); Cardiac pacemaker in situ; Atrial fibrillation, unspecified type (HCC) from Last 3 Months Allergies Active Allergy Reactions Criticality Noted Date Comments Carbamazepine Unknown 03/02/2020 Cephalexin Unknown 03/02/2020 Medications dextromethorpha n-guaiFENesin (ROBITUSSIN-DM) 2-20 mg/mL liquid Take 10 mL by mouth every 4 (four) hours as needed Active acetaminophen (TYLENOL) 325 mg tablet Take 2 tablets (650 mg total) by mouth every 4 (four) hours as needed Active magnesium hydroxide (MILK OF MAGNESIA) suspension 400 mg/5 mL Take 30 mL by mouth Active traMADoL (ULTRAM) 50 mg tablet Take 50 mg by mouth every 6 (six) hours as needed 1 Active bacitracin-neom ycin-polymyxin B (NEOSPORIN) ointmentIndicat ions:Minor Bacterial Skin Infections Apply topically 3 (three) times a day Active omeprazole (PriLOSEC) 40 mg capsule Take 1 capsule (40 mg total) by mouth daily Active carboxymethylce llulose (REFRESH TEARS) 0.5 % ophthalmic solution Administer 2 drops into affected eye(s) daily as needed 1 Active famotidine (PEPCID) 20 mg tablet Take 1 tablet (20 mg total) by mouth daily as needed for heartburn 3 Active Active Problems Problem Noted Date Diagnosed Date Conductive hearing loss, bilateral 03/15/2024 Assessment & Plan (03/16/2024 9:05 AM MANUFACTURING SR ENGINEER): Avoid ear cleaning techniques Follow up as needed Call for hearing test if hearing does not continue to improve after cerumen removal Impacted cerumen, bilateral 03/15/2024 Assessment & Plan (03/15/2024 10:22 AM MANUFACTURING SR ENGINEER): Avoid ear cleaning techniques Follow up as needed Social History Tobacco Use Types Packs/Day Years Used Date Smoking Tobacco: Never Tobacco Cessation:Counseling Given: No Sex and Gender Information Value Date Recorded Sex Assigned at Not on file Legal Sex Male 12:25 AM MANUFACTURING SR ENGINEER Gender Identity Not on file Sexual Orientation Not on file Last Filed Vital Signs Vital Sign Reading Time Taken Comments Blood Pressure 134/78 03/15/2024 9:36 AM MANUFACTURING SR ENGINEER Pulse 68 03/15/2024 9:36 AM MANUFACTURING SR ENGINEER Temperature 36.7 ??C (98.1 ??F) 04/14/2020 8:43 AM CS T Respiratory Rate 18 03/15/2024 9:36 AM MANUFACTURING SR ENGINEER Oxygen Saturation 96% 03/15/2024 9:36 AM MANUFACTURING SR ENGINEER Inhaled Oxygen Concentration - - Weight 66.2 kg (146 lb) 03/15/2024 9:36 AM MANUFACTURING SR ENGINEER Height 170.2 cm (5' 7.01 ) 03/15/2024 9:36 AM CS T Body Mass Index 22.86 03/15/2024 9:36 AM MANUFACTURING SR ENGINEER Plan of Treatment Not on file Procedures Procedure Name Priority Date/Time Associated Diagnosis Comments LA REMOVAL IMPACTED CERUMEN INSTRUMENTATION UNILAT Routine 03/15/2024 9:45 AM MANUFACTURING SR ENGINEER Impacted cerumen, bilateral DEVICE CHECK - REMOTE Routine 02/03/2024 9:15 AM MANUFACTURING SR ENGINEER SSS (sick sinus syndrome) (CMS/HCC) (HCC) Cardiac pacemaker in situ from Last 3 Months Results * LA REMOVAL IMPACTED CERUMEN INSTRUMENTATION UNILAT (03/15/2024 9:45 AM MANUFACTURING SR ENGINEER) Narrative Nunu Kauffman DO - 03/15/2024 9:45 AM MANUFACTURING SR ENGINEER Nunu Kauffman, DO ? 03/16/2024 ??9:08 AM Ear Cerumen Removal Performed by: Nunu Kauffman DO Authorized by: Nunu Kauffman DO ?? Consent Given by: ??Patient Timeout: prior to procedure the correct patient, procedure, and site was verified ?? Verbal consent obtained: Yes ?? Written consent obtained: No ?? Risks, alternatives, and patient questions discussed: Yes ?? Preparation: Patient was prepped using a clean technique ?? Location: ??Bilateral L ear cerumen impacted?: Yes ?? L ear method of removal: ??Instrumentation and magnification L ear instrumentation: ??Curette L ear magnification: ??Operating microscope R ear cerumen impacted?: Yes ?? R ear method of removal: ??Instrumentation and magnification R ear instrumentation: ??Curette R ear magnification: ??Operating microscope Inspection: ??TM intact Hearing quality: ??Improved Patient tolerance: ??Patient tolerated the procedure well with no immediate complications us Nunu Kauffman DO IN CLINIC/BEDSIDE ORDERABLES Final Result * DEVICE CHECK - REMOTE (02/03/2024 9:15 AM MANUFACTURING SR ENGINEER) Anatomical Region Laterality Modality Other Narrative 02/11/2024 11:29 AM MANUFACTURING SR ENGINEER Images from the original result were not included. 02/04/2024 [facility] [facility] [employer] quarterly remote device check NOTE The following shows snippets from the complete quarterly report. ?? The complete report in its entirety is attached to this Result Text in Lamp Assembler Most recently recorded periodic iEGM from 12/03/2023 Last in-office check 10/30/2023 Next in-office check 11/04/2024 DC PPM, implanted 03/03/2020 with 75% est remaining longevity Ap 35% RVp 0% No event/alert episodes recorded this monitoring quarter Reviewed By Erum Pérez RN BSN ATTESTATION I have reviewed the device interrogation report associated with this encounter in detail. I agree with the documentation recorded/scanned into the electronic medical record. Recommendations: Continue current device follow-up. Moni Mcnamara MD Moni Mcnamara MD [facility] OCEDURES Final Result from Last 3 Months Insurance [phone] (Home) [address] * Guarantor: Noel Costa Account Type Relation to Patient Date of Phone Billing Address Personal/Family Self 1995 [phone] (Home) [address] [place] [address] [facility] Care Teams Lead Assistant Manager Relationship Specialty Start Date End Date Yoshi Naqvi MD PCP - General Family Medicine 03/06/20
--- OUTSIDE RECORDS SUMMARY | 2024-03-18 22:18 | XMS_ITS | Encounter Summary ---
Author Organization [facility] Address [address] [place] [address] Phone Care Team Providers Care Life Enrichment Specialist Name Role Phone Yoshi Naqvi MD Primary Care Provider [phone] Alma Delia Childers APRN, ORTHOTIC TECHNICIAN Unavailable Encounter Details Date Type Department Care Team (Late st Contact Info) Description 02/21/2021 Lab Requisition [facility] Laboratory Services 1 [place] [address] Yoshi Naqvi MD [address] [place] [address] [facility] [address] [place] [address] Encounter for screening for COVID-19 Social History [...] Exposure Response Date Recorded In the last month, have you been in contact with someone who was confirmed or suspected to have Coronavirus / COVID-19? No / Unsure 02/11/2021 1:13 PM CABLE WIRER documented as of this encounter Plan of Treatment Not on file documented as of this encounter Procedures Procedure Name Priority Date/Time Associated Diagnosis Comments SARS-COV-2 BY MOLECULAR Routine 02/21/2021 8:11 AM CABLE WIRER Encounter for screening for COVID-19 documented in this encounter Results * SARS-COV-2 BY MOLECULAR (02/21/2021 8:11 AM CABLE WIRER) SARSCOV2 NOT DETECTED (Referen ce Range for this test is Not Detected ) [facility] THERMOFISHER FAST DX 02/24/2021 11:18 AM CABLE WIRER [facility] Comment:This test was perfor med by a RT-PCR method. Other No Phlebotomy Charged / Unknown 02/21/2021 8:11 AM CABLE WIRER 02/21/2021 11:24 AM CABLE WIRER Narrative [facility] - 02/24/2021 11:18 AM CABLE WIRER Authorized Fact Sheets about this test for providers and patients are available at: https://www.fda.gov/medical-devices/axitwirsk-mbxdgpzbkv-nxlgnch-devices/emergen -us e-authorizations us Yoshi Naqvi MD MICROBIOLOGY - GENERAL ORDERAB LES Final Result [facility] [address] [place] [address], documented in this encounter Visit Diagnoses Diagnosis Encounter for screening for COVID-19 documented in this encounter Additional Health Concerns Infection Onset Date Last Indicated Resolved Time COVID - 19 11/15/2020 08/01/2021 08/02/2021 2:04 PM CDT COVID - 19 Confirmed 08/01/2021 08/01/2021 022 12:16 AM CDT COVID - 19 10/31/2021 01/02/2022 01/12/2022 12:1 6 AM CABLE WIRER COVID - 19 02/20/2022 05/08/2022 05/18/2022 12:1 6 AM CDT documented as of this encounter Care Teams Life Enrichment Specialist Relationship Specialty Start Date End Date Yoshi Naqvi MD [address] [place] [address] [place] [place] [address] PCP - General Family Medicine 03/02/20 Alma Delia Childers APRN, ORTHOTIC TECHNICIAN [address] [place] [address] Nurse Practitioner Advanced Practice Nurse 10/15/22 documented as of this encounter
--- OUTSIDE RECORDS SUMMARY | 2024-03-18 22:18 | XMS_ITS | Encounter Summary ---
Author Organization [facility] Address [address] [place] [address] Phone Care Team Providers Care Bottle House Cleaners Supervisor Name Role Phone Yoshi Naqvi MD Primary Care Provider [phone] Alma Delia Childers APRN, TRUCKER HAND Unavailable Encounter Details Date Type Department Care Team (Late st Contact Info) Description 01/10/2021 Lab Requisition [facility] Laboratory Services 1 [place] [phone] Yoshi Naqvi MD [address] [place] [address] [facility] [address] [place] [address] Social History Tobacco Use Types Packs/Day Years [...] Associated Diagnosis Comments SARS-COV-2 BY MOLECULAR Routine 01/10/2021 8:15 AM INTERACTIVE ART DIRECTOR documented in this encounter Results * SARS-COV-2 BY MOLECULAR (01/10/2021 8:15 AM INTERACTIVE ART DIRECTOR) SARSCOV2 NOT DETECTED (Referen ce Range for this test is Not Detected ) [facility] THERMOFISHER FAST DX 01/11/2021 9:13 AM INTERACTIVE ART DIRECTOR [facility] Comment:This test was perfor med by a RT-PCR method. Other Non-Phlebotomy Collection / Unknown 01/10/2021 8:15 AM INTERACTIVE ART DIRECTOR 01/10/2021 11:07 AM INTERACTIVE ART DIRECTOR Narrative [facility] - 01/11/2021 9:13 AM INTERACTIVE ART DIRECTOR Authorized Fact Sheets about this test for providers and patients are available at: https://www.fda.gov/medical-devices/usbukmgca-fvqrqyzcjb-bsbonzo-devices/emergen -us e-authorizations us Yoshi Naqvi MD MICROBIOLOGY - GENERAL ORDERAB LES Final Result [facility] [address] [place] [address], documented in this encounter Visit Diagnoses Not on filedocumented in this encounter Additional Health Concerns Infection Onset Date Last Indicated Resolved Time COVID - 19 11/15/2020 08/01/2021 08/02/2021 2:04 PM CDT COVID - 19 Confirmed 08/01/2021 08/01/2021 022 12:16 AM CDT COVID - 19 10/31/2021 01/02/2022 01/12/2022 12:1 6 AM INTERACTIVE ART DIRECTOR COVID - 19 02/20/2022 05/08/2022 05/18/2022 12:1 6 AM CDT documented as of this encounter Care Teams Bottle House Cleaners Supervisor Relationship Specialty Start Date End Date Yoshi Naqvi MD [address] [place] [address] [address] [place] [address] PCP - General Family Medicine 03/02/20 Alma Delia Childers APRN, TRUCKER HAND [address] [place] [address] Nurse Practitioner Advanced Practice Nurse 10/15/22 documented as of this encounter
--- OUTSIDE RECORDS SUMMARY | 2024-03-18 22:18 | XMS_ITS | Encounter Summary ---
Author Organization [facility] Address [address] [place] [address] Phone Care Team Providers Care Practice Professional Name Role Phone Yoshi Naqvi MD Primary Care Provider [phone] Alma Delia Childers APRN, APPRENTICE COSMETOLOGIST Unavailable Encounter Details Date Type Department Care Team (Late st Contact Info) Description 04/18/2021 Lab Requisition [facility] Laboratory Services 1 [place] [address] Yoshi Naqvi MD [address] [place] [address] [facility] [address] [place] [address] Encounter for screening for COVID-19 Social History [...] Associated Diagnosis Comments SARS-COV-2 BY MOLECULAR Routine 04/18/2021 7:51 AM WAITER/WAITRESS DINING CAR Encounter for screening for COVID-19 documented in this encounter Results * SARS-COV-2 BY MOLECULAR (04/18/2021 7:51 AM WAITER/WAITRESS DINING CAR) SARSCOV2 NOT DETECTED (Referen ce Range for this test is Not Detected ) [facility] THERMOFISHER FAST DX 04/18/2021 11:40 PM WAITER/WAITRESS DINING CAR [facility] Comment:This test was perfor med by a RT-PCR method. Other Non-Phlebotomy Collection / Unknown 04/18/2021 7:51 AM WAITER/WAITRESS DINING CAR 04/18/2021 10:34 AM WAITER/WAITRESS DINING CAR Narrative [facility] - 04/18/2021 11:40 PM WAITER/WAITRESS DINING CAR Authorized Fact Sheets about this test for providers and patients are available at: https://www.fda.gov/medical-devices/tjuvnskiy-szutkmbvgu-ihknamw-devices/emergen -us e-authorizations us Yoshi Naqvi MD MICROBIOLOGY - GENERAL ORDERAB LES Final Result [facility] [address] [place] [address], documented in this encounter Visit Diagnoses Diagnosis Encounter for screening for COVID-19 documented in this encounter Additional Health Concerns Infection Onset Date Last Indicated Resolved Time COVID - 19 11/15/2020 08/01/2021 08/02/2021 2:04 PM CDT COVID - 19 Confirmed 08/01/2021 08/01/2021 022 12:16 AM CDT COVID - 19 10/31/2021 01/02/2022 01/12/2022 12:1 6 AM WAITER/WAITRESS DINING CAR COVID - 19 02/20/2022 05/08/2022 05/18/2022 12:1 6 AM CDT documented as of this encounter Care Teams Practice Professional Relationship Specialty Start Date End Date Yoshi Naqvi MD [address] [facility] [address] [place] [address] PCP - General Family Medicine 03/02/20 Alma Delia Childers MUSIC ARRANGER, APPRENTICE COSMETOLOGIST [address] [place] [address] Nurse Practitioner Advanced Practice Nurse 10/15/22 documented as of this encounter
--- OUTSIDE RECORDS SUMMARY | 2024-03-18 22:18 | XMS_ITS | Encounter Summary ---
Author Organization [facility] Address [address] [place] [address] Phone Care Team Providers Care Fire Marshal Name Role Phone Yoshi Naqvi MD Primary Care Provider [phone] Alma Delia Childers APRN, ELECTRONIC TYPESETTING MACHINE OPERATOR Unavailable Encounter Details Date Type Department Care Team (Late st Contact Info) Description 03/07/2021 Lab Requisition [facility] Laboratory Services 1 [place] [phone] Yoshi Naqvi MD [address] [place] [address] [facility] [address] [place] [address] Social History Tobacco Use Types Packs/Day Years [...] COVID-19? No / Unsure 02/11/2021 1:13 PM HOOP RIVETING MACHINE OPERATOR HELPER documented as of this encounter Plan of Treatment Not on file documented as of this encounter Procedures Procedure Name Priority Date/Time Associated Diagnosis Comments SARS-COV-2 BY MOLECULAR Routine 03/07/2021 7:44 AM HOOP RIVETING MACHINE OPERATOR HELPER documented in this encounter Results * SARS-COV-2 BY MOLECULAR (03/07/2021 7:44 AM HOOP RIVETING MACHINE OPERATOR HELPER) SARSCOV2 NOT DETECTED (Referen ce Range for this test is Not Detected ) [facility] THERMOFISHER FAST DX 03/09/2021 6:12 AM HOOP RIVETING MACHINE OPERATOR HELPER [facility] Comment:This test was perfor med by a RT-PCR method. Other Non-Phlebotomy Collection / Unknown 03/07/2021 7:44 AM HOOP RIVETING MACHINE OPERATOR HELPER 03/07/2021 11:39 AM HOOP RIVETING MACHINE OPERATOR HELPER Narrative [facility] - 03/09/2021 6:12 AM HOOP RIVETING MACHINE OPERATOR HELPER Authorized Fact Sheets about this test for providers and patients are available at: https://www.fda.gov/medical-devices/rnbdyapoj-ylexcdsemd-rtfscmz-devices/emergen -us e-authorizations us Yoshi Naqvi MD MICROBIOLOGY - GENERAL ORDERAB LES Final Result Performing Organization Address City/State/[facility] Co de Phone Number [facility] [address] [place] [phone], documented in this encounter Visit Diagnoses Not on filedocumented in this encounter Additional Health Concerns Infection Onset Date Last Indicated Resolved Time COVID - 19 11/15/2020 08/01/2021 08/02/2021 2:04 PM CDT COVID - 19 Confirmed 08/01/2021 08/01/2021 022 12:16 AM CDT COVID - 19 10/31/2021 01/02/2022 01/12/2022 12:1 6 AM HOOP RIVETING MACHINE OPERATOR HELPER COVID - 19 02/20/2022 05/08/2022 05/18/2022 12:1 6 AM CDT documented as of this encounter Care Teams Fire Marshal Relationship Specialty Start Date End Date Yoshi Naqvi MD [address] [place] [address] [address] [place] [address] PCP - General Family Medicine 03/02/20 Alma Delia Childers APRN, ELECTRONIC TYPESETTING MACHINE OPERATOR [address] [place] [address] Nurse Practitioner Advanced Practice Nurse 10/15/22 documented as of this encounter
--- OUTSIDE RECORDS SUMMARY | 2024-03-18 22:18 | XMS_ITS | Encounter Summary ---
Author Organization [facility] Address [address] [place] [address] Phone Care Team Providers Care Defense Travel Administrator Name Role Phone Yoshi Naqvi MD Primary Care Provider [phone] Alma Delia Childers APRN, HEALTH CONSULTANT Unavailable Encounter Details Date Type Department Care Team (Late st Contact Info) Description 11/29/2020 Lab Requisition [facility] Laboratory Services 1 [place] [phone] Yoshi Naqvi MD [address] [place] [address] [facility] [address] [place] [address] Social History Tobacco Use Types Packs/Day Years [...] Associated Diagnosis Comments SARS-COV-2 BY MOLECULAR Routine 11/29/2020 8:22 AM CDT documented in this encounter Results * SARS-COV-2 BY MOLECULAR (11/29/2020 8:22 AM CDT) SARSCOV2 NOT DETECTED (Referen ce Range for this test is Not Detected ) [facility] THERMOFISHER FAST DX 11/30/2020 6:22 AM CDT [facility] Comment:This test was perfor med by a RT-PCR method. Other Non-Phlebotomy Collection / Unknown 11/29/2020 8:22 AM CDT 11/29/2020 10:34 AM CDT Narrative [facility] - 11/30/2020 6:22 AM CDT Authorized Fact Sheets about this test for providers and patients are available at: https://www.fda.gov/medical-devices/uuelbcnly-sourvrhhzb-lsdgpjs-devices/emergen -us e-authorizations us Yoshi Naqvi MD MICROBIOLOGY - GENERAL ORDERAB LES Final Result [facility] [address] [place] [address], documented in this encounter Visit Diagnoses Not on filedocumented in this encounter Additional Health Concerns Infection Onset Date Last Indicated Resolved Time COVID - 19 11/15/2020 08/01/2021 08/02/2021 2:04 PM CDT COVID - 19 Confirmed 08/01/2021 08/01/2021 022 12:16 AM CDT COVID - 19 10/31/2021 01/02/2022 01/12/2022 12:1 6 AM CD MANUFACTURING SUPERVISOR COVID - 19 02/20/2022 05/08/2022 05/18/2022 12:1 6 AM CDT documented as of this encounter Care Teams Defense Travel Administrator Relationship Specialty Start Date End Date Yoshi Naqvi MD [address] [facility] [address] [place] [address] PCP - General Family Medicine 03/02/20 Alma Delia Childers APRN, HEALTH CONSULTANT [address] [place] [address] Nurse Practitioner Advanced Practice Nurse 10/15/22 documented as of this encounter
--- OUTSIDE RECORDS SUMMARY | 2024-03-18 22:18 | XMS_ITS | Encounter Summary ---
Author Organization [facility] Address [address] [place] [address] Phone Care Team Providers Care Art Appraiser Name Role Phone Yoshi Naqvi MD Primary Care Provider [phone] Alma Delia Childers APRN, PRIVACY MANAGER Unavailable Encounter Details Date Type Department Care Team (Late st Contact Info) Description 12/13/2020 Lab Requisition [facility] Laboratory Services 1 [place] [id number] Yoshi Naqvi MD [address] [place] [address] [facility] [address] [place] [address] Social History Tobacco Use Types Packs/Day Years [...] Associated Diagnosis Comments SARS-COV-2 BY MOLECULAR Routine 12/13/2020 8:08 AM CDT documented in this encounter Results * SARS-COV-2 BY MOLECULAR (12/13/2020 8:08 AM CDT) SARSCOV2 NOT DETECTED (Referen ce Range for this test is Not Detected ) [facility] THERMOFISHER FAST DX 12/13/2020 5:44 PM CDT [facility] Comment:This test was perfor med by a RT-PCR method. Other Non-Phlebotomy Collection / Unknown 12/13/2020 8:08 AM CDT 12/13/2020 10:49 AM CDT Narrative [facility] - 12/13/2020 5:44 PM CDT Authorized Fact Sheets about this test for providers and patients are available at: https://www.fda.gov/medical-devices/klnqldcpu-lyacefaxxi-zmzqqfc-devices/emergen -us e-authorizations us Yoshi Naqvi MD MICROBIOLOGY - GENERAL ORDERAB LES Final Result [facility] [address] [place] [address], documented in this encounter Visit Diagnoses Not on filedocumented in this encounter Additional Health Concerns Infection Onset Date Last Indicated Resolved Time COVID - 19 11/15/2020 08/01/2021 08/02/2021 2:04 PM CDT COVID - 19 Confirmed 08/01/2021 08/01/2021 022 12:16 AM CDT COVID - 19 10/31/2021 01/02/2022 01/12/2022 12:1 6 AM TOP STEEP TENDER COVID - 19 02/20/2022 05/08/2022 05/18/2022 12:1 6 AM CDT documented as of this encounter Care Teams Art Appraiser Relationship Specialty Start Date End Date Yoshi Naqvi MD [address] [facility] [address] [place] [address] PCP - General Family Medicine 03/02/20 Alma Delia Childers APRN, PRIVACY MANAGER [address] [place] [address] Nurse Practitioner Advanced Practice Nurse 10/15/22 documented as of this encounter
--- OUTSIDE RECORDS SUMMARY | 2024-03-18 22:18 | XMS_ITS | Encounter Summary ---
Author Organization [facility] Address [address] [place] [address] Phone Care Team Providers Care Psychiatric Aides Teacher Name Role Phone Yoshi Naqvi MD Primary Care Provider [phone] Alma Delia Childers APRN, TEST AUTOMATION ARCHITECT Unavailable Encounter Details Date Type Department Care Team (Late st Contact Info) Description 01/31/2021 Lab Requisition [facility] Laboratory Services 1 [place] [address] Yoshi Naqvi MD [address] [place] [address] [facility] 210 [place] [address] Encounter for screening for COVID-19 Social History [...] Associated Diagnosis Comments SARS-COV-2 BY MOLECULAR Routine 01/31/2021 8:06 AM HEAD COUNSELOR Encounter for screening for COVID-19 documented in this encounter Results * SARS-COV-2 BY MOLECULAR (01/31/2021 8:06 AM HEAD COUNSELOR) SARSCOV2 NOT DETECTED (Referen ce Range for this test is Not Detected ) [facility] THERMOFISHER FAST DX 02/01/2021 5:59 PM HEAD COUNSELOR [facility] Comment:This test was perfor med by a RT-PCR method. Other No Phlebotomy Charged / Unknown 01/31/2021 8:06 AM HEAD COUNSELOR 01/31/2021 11:03 AM HEAD COUNSELOR Narrative [facility] - 02/01/2021 5:59 PM HEAD COUNSELOR Authorized Fact Sheets about this test for providers and patients are available at: https://www.fda.gov/medical-devices/stpjimhot-tnwojcxsiq-ufvfrsk-devices/emergen -us e-authorizations us Yoshi Naqvi MD MICROBIOLOGY - GENERAL ORDERAB LES Final Result [facility] [address] [place] [address], documented in this encounter Visit Diagnoses Diagnosis Encounter for screening for COVID-19 documented in this encounter Additional Health Concerns Infection Onset Date Last Indicated Resolved Time COVID - 19 11/15/2020 08/01/2021 08/02/2021 2:04 PM CDT COVID - 19 Confirmed 08/01/2021 08/01/2021 022 12:16 AM CDT COVID - 19 10/31/2021 01/02/2022 01/12/2022 12:1 6 AM HEAD COUNSELOR COVID - 19 02/20/2022 05/08/2022 05/18/2022 12:1 6 AM CDT documented as of this encounter Care Teams Psychiatric Aides Teacher Relationship Specialty Start Date End Date Yoshi Naqvi MD 4 [facility] [address] [place] [address] PCP - General Family Medicine 03/02/20 Alma Delia Childers APRN, TEST AUTOMATION ARCHITECT [address] [place] [address] Nurse Practitioner Advanced Practice Nurse 10/15/22 documented as of this encounter
--- OUTSIDE RECORDS SUMMARY | 2024-03-18 22:18 | XMS_ITS | Encounter Summary ---
Author Organization [facility] Address [address] [place] [address] Care Team Providers Care Systems Manager Name Role Phone Yoshi Naqvi MD Primary Care Provider [phone] Encounter Details Date Type Department Care Team (Late st Contact Info) Description 06/19/2023 Telephone [facility] Therapist [address] [place] [phone] Ofelia Álvarez Social History Tobacco Use Types Packs/Day Years Used Date Smoking Tobacco: Never Sex and Gender Information Value Date Recorded Sex Assigned at Not on file Legal Sex Male 12:25 AM OVEN ROASTER Gender Identity Not on file Sexual Orientation Not on file documented as of this encounter Plan of Treatment Not on file documented as of this encounter Visit Diagnoses Not on filedocumented in this encounter Care Teams Systems Manager Relationship Specialty Start Date End Date Yoshi Naqvi MD PCP - General Family Medicine 03/06/20 documented as of this encounter
--- OUTSIDE RECORDS SUMMARY | 2024-03-18 22:18 | XMS_ITS | Encounter Summary ---
Author Organization [facility] Address [address] [place] [address] Phone Care Team Providers Care Supervisor Instrument Maintenance Name Role Phone Yoshi Naqvi MD Primary Care Provider [phone] Alma Delia Childers APRN, TEXTILE SLITTING MACHINE OPERATOR Unavailable Encounter Details Date Type Department Care Team (Late st Contact Info) Description 12/06/2020 Lab Requisition [facility] Laboratory Services 1 [place] [address] Yoshi Naqvi MD [address] [place] [address] [facility] [address] [place] [address] Encounter for screening for COVID-19 Social History [...] Associated Diagnosis Comments SARS-COV-2 BY MOLECULAR Routine 12/06/2020 8:15 AM CDT Encounter for screening for COVID-19 documented in this encounter Results * SARS-COV-2 BY MOLECULAR (12/06/2020 8:15 AM CDT) SARSCOV2 NOT DETECTED (Referen ce Range for this test is Not Detected ) [facility] THERMOFISHER FAST DX 12/07/2020 7:14 AM CDT [facility] Comment:This test was perfor med by a RT-PCR method. Other Non-Phlebotomy Collection / Unknown 12/06/2020 8:15 AM CDT 12/06/2020 11:26 AM CDT Narrative [facility] - 12/07/2020 7:14 AM CDT Authorized Fact Sheets about this test for providers and patients are available at: https://www.fda.gov/medical-devices/hpafguqba-phsyzehhbd-crpzfny-devices/emergen -us e-authorizations us Yoshi Naqvi MD MICROBIOLOGY - GENERAL ORDERAB LES Final Result [facility] [address] [place] [address], documented in this encounter Visit Diagnoses Diagnosis Encounter for screening for COVID-19 documented in this encounter Additional Health Concerns Infection Onset Date Last Indicated Resolved Time COVID - 19 11/15/2020 08/01/2021 08/02/2021 2:04 PM CDT COVID - 19 Confirmed 08/01/2021 08/01/2021 022 12:16 AM CDT COVID - 19 10/31/2021 01/02/2022 01/12/2022 12:1 6 AM CIVIL RIGHTS REPRESENTATIVE COVID - 19 02/20/2022 05/08/2022 05/18/2022 12:1 6 AM CDT documented as of this encounter Care Teams Supervisor Instrument Maintenance Relationship Specialty Start Date End Date Yoshi Naqvi MD [address] [facility] [address] [place] [address] PCP - General Family Medicine 03/02/20 Alma Delia Childers APRN, TEXTILE SLITTING MACHINE OPERATOR [address] [place] [address] Nurse Practitioner Advanced Practice Nurse 10/15/22 documented as of this encounter
--- OUTSIDE RECORDS SUMMARY | 2024-03-18 22:18 | XMS_ITS | Encounter Summary ---
Author Organization [facility] Address [address] [place] [address] Phone Care Team Providers Care Paediatric Thoracic Physician Name Role Phone Yoshi Naqvi MD Primary Care Provider [phone] Alma Delia Childers APRN, DIRECTOR PERSONAL Unavailable Encounter Details Date Type Department Care Team (Late st Contact Info) Description 04/11/2021 Lab Requisition [facility] Laboratory Services 1 [place] [address] Yoshi Naqvi MD [address] [place] [address] [facility] [address] [place] [address] Encounter for screening for COVID-19 Social History [...] Associated Diagnosis Comments SARS-COV-2 BY MOLECULAR Routine 04/11/2021 7:24 AM HEAVY EQUIPMENT RENTAL MANAGER Encounter for screening for COVID-19 documented in this encounter Results * SARS-COV-2 BY MOLECULAR (04/11/2021 7:24 AM HEAVY EQUIPMENT RENTAL MANAGER) SARSCOV2 NOT DETECTED (Referen ce Range for this test is Not Detected ) [facility] THERMOFISHER FAST DX 04/12/2021 7:09 AM HEAVY EQUIPMENT RENTAL MANAGER [facility] Comment:This test was perfor med by a RT-PCR method. Other Non-Phlebotomy Collection / Unknown 04/11/2021 7:24 AM HEAVY EQUIPMENT RENTAL MANAGER 04/11/2021 11:10 AM HEAVY EQUIPMENT RENTAL MANAGER Narrative [facility] - 04/12/2021 7:09 AM HEAVY EQUIPMENT RENTAL MANAGER Authorized Fact Sheets about this test for providers and patients are available at: https://www.fda.gov/medical-devices/rteghseme-cmhpzpffpg-sgtjlot-devices/emergen -us e-authorizations us Yoshi Naqvi MD MICROBIOLOGY - GENERAL ORDERAB LES Final Result [facility] [address] [place] [address], documented in this encounter Visit Diagnoses Diagnosis Encounter for screening for COVID-19 documented in this encounter Additional Health Concerns Infection Onset Date Last Indicated Resolved Time COVID - 19 11/15/2020 08/01/2021 08/02/2021 2:04 PM CDT COVID - 19 Confirmed 08/01/2021 08/01/2021 022 12:16 AM CDT COVID - 19 10/31/2021 01/02/2022 01/12/2022 12:1 6 AM HEAVY EQUIPMENT RENTAL MANAGER COVID - 19 02/20/2022 05/08/2022 05/18/2022 12:1 6 AM CDT documented as of this encounter Care Teams Paediatric Thoracic Physician Relationship Specialty Start Date End Date Yoshi Naqvi MD [address] [facility] [address] [place] [address] PCP - General Family Medicine 03/02/20 Alma Delia Childers CARPORT ERECTOR, DIRECTOR PERSONAL [address] [place] [address] Nurse Practitioner Advanced Practice Nurse 10/15/22 documented as of this encounter
--- OUTSIDE RECORDS SUMMARY | 2024-03-18 22:18 | XMS_ITS | Encounter Summary ---
Author Organization [facility] Address [address] [place] [address] Phone Care Team Providers Care Benzene Worker Name Role Phone Yoshi Naqvi MD Primary Care Provider [phone] Alma Delia hCilders APRN, PRODUCTION HELPER Unavailable Encounter Details Date Type Department Care Team (Late st Contact Info) Description 03/21/2021 Lab Requisition [facility] Laboratory Services 1 [place] [address] Yoshi Naqvi MD [address] [place] [address] [facility] [address] [place] [address] Encounter for screening for COVID-19 Social History [...] Associated Diagnosis Comments SARS-COV-2 BY MOLECULAR Routine 03/21/2021 7:34 AM CLINICAL RESEARCH NURSE Encounter for screening for COVID-19 documented in this encounter Results * SARS-COV-2 BY MOLECULAR (03/21/2021 7:34 AM CLINICAL RESEARCH NURSE) SARSCOV2 NOT DETECTED (Referen ce Range for this test is Not Detected ) [facility] THERMOFISHER FAST DX 03/22/2021 3:19 PM CLINICAL RESEARCH NURSE [facility] Comment:This test was perfor med by a RT-PCR method. Other No Phlebotomy Charged / Unknown 03/21/2021 7:34 AM CLINICAL RESEARCH NURSE 03/21/2021 11:33 AM CLINICAL RESEARCH NURSE Narrative [facility] - 03/22/2021 3:19 PM CLINICAL RESEARCH NURSE Authorized Fact Sheets about this test for providers and patients are available at: https://www.fda.gov/medical-devices/sypsmbsmy-ufizpmoluh-ywqckuf-devices/emergen -us e-authorizations Result [facility] us Yoshi Naqvi MD MICROBIOLOGY - GENERAL ORDERAB LES Final Result [facility] [address] [place] [address], documented in this encounter Visit Diagnoses Diagnosis Encounter for screening for COVID-19 documented in this encounter Additional Health Concerns Infection Onset Date Last Indicated Resolved Time COVID - 19 11/15/2020 08/01/2021 08/02/2021 2:04 PM CDT COVID - 19 Confirmed 08/01/2021 08/01/2021 022 12:16 AM CDT COVID - 19 10/31/2021 01/02/2022 01/12/2022 12:1 6 AM CLINICAL RESEARCH NURSE COVID - 19 02/20/2022 05/08/2022 05/18/2022 12:1 6 AM CDT documented as of this encounter Care Teams Benzene Worker Relationship Specialty Start Date End Date Yoshi Naqvi MD [address] [facility] [address] [place] [address] PCP - General Family Medicine 03/02/20 Alma Delia Childers APRN, PRODUCTION HELPER [address] [place] [address] Nurse Practitioner Advanced Practice Nurse 10/15/22 documented as of this encounter
--- OUTSIDE RECORDS SUMMARY | 2024-03-18 22:18 | XMS_ITS | Encounter Summary ---
Author Organization [facility] Address [address] [place] [address] Phone Care Team Providers Care Second Language Tutor Name Role Phone Yoshi Naqvi MD Primary Care Provider [phone] Alma Delia Childers APRN, HOLLOCK MAKER Unavailable Encounter Details Date Type Department Care Team (Late st Contact Info) Description 01/03/2021 Lab Requisition [facility] Laboratory Services 1 [place] [address] Yoshi Naqvi MD [address] [place] [address] [facility] [address] [place] [address] Encounter for screening for COVID-19 Social History [...] Associated Diagnosis Comments SARS-COV-2 BY MOLECULAR Routine 01/03/2021 8:09 AM FIREARMS EXPERT Encounter for screening for COVID-19 documented in this encounter Results * SARS-COV-2 BY MOLECULAR (01/03/2021 8:09 AM FIREARMS EXPERT) SARSCOV2 NOT DETECTED (Referen ce Range for this test is Not Detected ) [facility] THERMOFISHER FAST DX 01/04/2021 1:33 PM FIREARMS EXPERT [facility] Comment:This test was perfor med by a RT-PCR method. Other Non-Phlebotomy Collection / Unknown 01/03/2021 8:09 AM FIREARMS EXPERT 01/03/2021 10:14 AM FIREARMS EXPERT Narrative [facility] - 01/04/2021 1:33 PM FIREARMS EXPERT Authorized Fact Sheets about this test for providers and patients are available at: https://www.fda.gov/medical-devices/dvmfsipqi-etpthvjpdu-gyhdznk-devices/emergen -us e-authorizations us Yoshi Naqvi MD MICROBIOLOGY - GENERAL ORDERAB LES Final Result [facility] [address] [place] [address], documented in this encounter Visit Diagnoses Diagnosis Encounter for screening for COVID-19 documented in this encounter Additional Health Concerns Infection Onset Date Last Indicated Resolved Time COVID - 19 11/15/2020 08/01/2021 08/02/2021 2:04 PM CDT COVID - 19 Confirmed 08/01/2021 08/01/2021 022 12:16 AM CDT COVID - 19 10/31/2021 01/02/2022 01/12/2022 12:1 6 AM FIREARMS EXPERT COVID - 19 02/20/2022 05/08/2022 05/18/2022 12:1 6 AM CDT documented as of this encounter Care Teams Second Language Tutor Relationship Specialty Start Date End Date Yoshi Naqvi MD [address] [facility] [address] [place] [address] PCP - General Family Medicine 03/02/20 Alma Delia Childers BOAT RIGGER, HOLLOCK MAKER [address] [place] [address] Nurse Practitioner Advanced Practice Nurse 10/15/22 documented as of this encounter
--- OUTSIDE RECORDS SUMMARY | 2024-03-18 22:18 | XMS_ITS | Encounter Summary ---
Author Organization [facility] Address [address] [place] [address] Phone Care Team Providers Care Teaching Aide Name Role Phone Yoshi Naqvi MD Primary Care Provider [phone] Alma Delia Childers APRN, HIGHWAY WORKER Unavailable Encounter Details Date Type Department Care Team (Late st Contact Info) Description 05/09/2021 Lab Requisition [facility] Laboratory Services 1 [place] [address] Yoshi Naqvi MD [address] [place] [address] [facility] [address] [place] [address] Encounter for screening for COVID-19 Social History [...] Associated Diagnosis Comments SARS-COV-2 BY MOLECULAR Routine 05/09/2021 7:28 AM CDT Encounter for screening for COVID-19 documented in this encounter Results * SARS-COV-2 BY MOLECULAR (05/09/2021 7:28 AM CDT) SARSCOV2 NOT DETECTED (Referen ce Range for this test is Not Detected ) [facility] THERMOFISHER FAST DX 05/09/2021 11:53 PM CDT [facility] Comment:This test was perfor med by a RT-PCR method. Other Non-Phlebotomy Collection / Unknown 05/09/2021 7:28 AM CDT 05/09/2021 12:42 PM CDT Narrative [facility] - 05/09/2021 11:53 PM CDT Authorized Fact Sheets about this test for providers and patients are available at: https://www.fda.gov/medical-devices/oschycvsb-kpqtuwkrxz-msnkqiv-devices/emergen -us e-authorizations us Yoshi Naqvi MD MICROBIOLOGY - GENERAL ORDERAB LES Final Result [facility] [address] [place] [address], documented in this encounter Visit Diagnoses Diagnosis Encounter for screening for COVID-19 documented in this encounter Additional Health Concerns Infection Onset Date Last Indicated Resolved Time COVID - 19 11/15/2020 08/01/2021 08/02/2021 2:04 PM CDT COVID - 19 Confirmed 08/01/2021 08/01/2021 022 12:16 AM CDT COVID - 19 10/31/2021 01/02/2022 01/12/2022 12:1 6 AM DOCUMENT COORDINATOR COVID - 19 02/20/2022 05/08/2022 05/18/2022 12:1 6 AM CDT documented as of this encounter Care Teams Teaching Aide Relationship Specialty Start Date End Date Yoshi Naqvi MD [address] [facility] [address] [place] [address] PCP - General Family Medicine 03/02/20 Alma Delia Childers APRN, HIGHWAY WORKER [address] [place] [address] Nurse Practitioner Advanced Practice Nurse 10/15/22 documented as of this encounter
--- OUTSIDE RECORDS SUMMARY | 2024-03-18 22:18 | XMS_ITS | Encounter Summary ---
Author Organization [facility] Address [address] [place] [address] Phone Care Team Providers Care Meat And Seafood Clerk Name Role Phone Yoshi Naqvi MD Primary Care Provider [phone] Alma Delia Childers APRN, CARBON PRINTER Unavailable Encounter Details Date Type Department Care Team (Late st Contact Info) Description 05/16/2021 Lab Requisition [facility] Laboratory Services 1 [place] [address] Yoshi Naqvi MD [address] [place] [address] [facility] [address] [place] [address] Encounter for screening for COVID-19 Social History [...] Associated Diagnosis Comments SARS-COV-2 BY MOLECULAR Routine 05/16/2021 7:22 AM CDT Encounter for screening for COVID-19 documented in this encounter Results * SARS-COV-2 BY MOLECULAR (05/16/2021 7:22 AM CDT) SARSCOV2 NOT DETECTED (Referen ce Range for this test is Not Detected ) [facility] THERMOFISHER FAST DX 05/17/2021 12:07 AM CDT [facility] Comment:This test was perfor med by a RT-PCR method. Other Non-Phlebotomy Collection / Unknown 05/16/2021 7:22 AM CDT 05/16/2021 12:57 PM CDT Narrative [facility] - 05/17/2021 12:07 AM CDT Authorized Fact Sheets about this test for providers and patients are available at: https://www.fda.gov/medical-devices/simfglgcx-zwhaeaxkzz-qfbrywf-devices/emergen -us e-authorizations us Yoshi Naqvi MD MICROBIOLOGY - GENERAL ORDERAB LES Final Result [facility] [address] [place] [address], documented in this encounter Visit Diagnoses Diagnosis Encounter for screening for COVID-19 documented in this encounter Additional Health Concerns Infection Onset Date Last Indicated Resolved Time COVID - 19 11/15/2020 08/01/2021 08/02/2021 2:04 PM CDT COVID - 19 Confirmed 08/01/2021 08/01/2021 022 12:16 AM CDT COVID - 19 10/31/2021 01/02/2022 01/12/2022 12:1 6 AM UNIVERSITY PROFESSOR COVID - 19 02/20/2022 05/08/2022 05/18/2022 12:1 6 AM CDT documented as of this encounter Care Teams Meat And Seafood Clerk Relationship Specialty Start Date End Date Yoshi Naqvi MD 4 [facility] [address] [place] [address] PCP - General Family Medicine 03/02/20 Alma Delia Childers APRN, CARBON PRINTER [address] [place] [address] Nurse Practitioner Advanced Practice Nurse 10/15/22 documented as of this encounter
--- OUTSIDE RECORDS SUMMARY | 2024-03-18 22:18 | XMS_ITS | Encounter Summary ---
Author Organization [facility] Address [address] [place] [address] Phone Care Team Providers Care Lead Operator Name Role Phone Yoshi Naqvi MD Primary Care Provider Alma Delia Childers APRN, HISTORIOGRAPHER Unavailable Encounter Details Date Type Department Care Team (Late st Contact Info) Description 01/24/2021 Lab Requisition [facility] Laboratory Services 1 [place] [id number] Yoshi Naqvi MD [address] [place] [address] [facility] [address] [place] [address] Social History Tobacco Use Types Packs/Day Years [...] Associated Diagnosis Comments SARS-COV-2 BY MOLECULAR Routine 01/24/2021 7:50 AM MOTORS ASSEMBLER documented in this encounter Results * SARS-COV-2 BY MOLECULAR (01/24/2021 7:50 AM MOTORS ASSEMBLER) SARSCOV2 NOT DETECTED (Referen ce Range for this test is Not Detected ) [facility] THERMOFISHER FAST DX 01/24/2021 11:54 PM MOTORS ASSEMBLER [facility] Comment:This test was perfor med by a RT-PCR method. Other Non-Phlebotomy Collection / Unknown 01/24/2021 7:50 AM MOTORS ASSEMBLER 01/24/2021 10:57 AM MOTORS ASSEMBLER Narrative [facility] - 01/24/2021 11:54 PM MOTORS ASSEMBLER Authorized Fact Sheets about this test for providers and patients are available at: https://www.fda.gov/medical-devices/qmvjcbmqb-iqtudckhna-rwqgbod-devices/emergen -us e-authorizations us Yoshi Naqvi MD MICROBIOLOGY - GENERAL ORDERAB LES Final Result [facility] [address] [place] [address], documented in this encounter Visit Diagnoses Not on filedocumented in this encounter Additional Health Concerns Infection Onset Date Last Indicated Resolved Time COVID - 19 11/15/2020 08/01/2021 08/02/2021 2:04 PM CDT COVID - 19 Confirmed 08/01/2021 08/01/2021 022 12:16 AM CDT COVID - 19 10/31/2021 01/02/2022 01/12/2022 12:1 6 AM MOTORS ASSEMBLER COVID - 19 02/20/2022 05/08/2022 05/18/2022 12:1 6 AM CDT documented as of this encounter Care Teams Lead Operator Relationship Specialty Start Date End Date Yoshi Naqvi MD [address] [place] [address] [address] [place] [address] PCP - General Family Medicine 03/02/20 Alma Delia Childers APRN, HISTORIOGRAPHER [address] [place] [address] Nurse Practitioner Advanced Practice Nurse 10/15/22 documented as of this encounter
--- OUTSIDE RECORDS SUMMARY | 2024-03-18 22:18 | XMS_ITS | Encounter Summary ---
Author Organization [facility] Address [address] [place] [address] Phone Care Team Providers Care [employer] Teacher Name Role Phone Yoshi Naqvi MD Primary Care Provider [phone] Alma Delia Childers APRN, AIRPORT SHUTTLE DRIVER Unavailable Encounter Details Date Type Department Care Team (Late st Contact Info) Description 04/04/2021 Lab Requisition [facility] Laboratory Services 1 [place] [address] Yoshi Naqvi MD [address] [place] [address] [facility] [address] [place] [address] Encounter for screening for COVID-19 Social History [...] Associated Diagnosis Comments SARS-COV-2 BY MOLECULAR Routine 04/04/2021 7:21 AM RUBBER TIRE AND TUBES SUPERVISOR Encounter for screening for COVID-19 documented in this encounter Results * SARS-COV-2 BY MOLECULAR (04/04/2021 7:21 AM RUBBER TIRE AND TUBES SUPERVISOR) SARSCOV2 NOT DETECTED (Referen ce Range for this test is Not Detected ) [facility] THERMOFISHER FAST DX 04/04/2021 11:49 PM RUBBER TIRE AND TUBES SUPERVISOR [facility] Comment:This test was perfor med by a RT-PCR method. Other Non-Phlebotomy Collection / Unknown 04/04/2021 7:21 AM RUBBER TIRE AND TUBES SUPERVISOR 04/04/2021 12:08 PM RUBBER TIRE AND TUBES SUPERVISOR Narrative [facility] - 04/04/2021 11:49 PM RUBBER TIRE AND TUBES SUPERVISOR Authorized Fact Sheets about this test for providers and patients are available at: https://www.fda.gov/medical-devices/cwdaqqddy-yjrjnfdesm-hqllipm-devices/emergen -us e-authorizations us Yoshi Naqvi MD MICROBIOLOGY - GENERAL ORDERAB LES Final Result [facility] [address] [place] [address], documented in this encounter Visit Diagnoses Diagnosis Encounter for screening for COVID-19 documented in this encounter Additional Health Concerns Infection Onset Date Last Indicated Resolved Time COVID - 19 11/15/2020 08/01/2021 08/02/2021 2:04 PM CDT COVID - 19 Confirmed 08/01/2021 08/01/2021 022 12:16 AM CDT COVID - 19 10/31/2021 01/02/2022 01/12/2022 12:1 6 AM RUBBER TIRE AND TUBES SUPERVISOR COVID - 19 02/20/2022 05/08/2022 05/18/2022 12:1 6 AM CDT documented as of this encounter Care Teams [employer] Teacher Relationship Specialty Start Date End Date Yoshi Naqvi MD [address] [facility] [facility] [facility] [address] [place] [address] PCP - General Family Medicine 03/02/20 Alma Delia Childers BIBLE WORKER, AIRPORT SHUTTLE DRIVER [address] [place] [address] Nurse Practitioner Advanced Practice Nurse 10/15/22 documented as of this encounter
--- OUTSIDE RECORDS SUMMARY | 2024-03-18 22:18 | XMS_ITS | Encounter Summary ---
Author Organization [facility] Address [address] [place] [address] Phone Care Team Providers Care Skatesman Name Role Phone Yoshi Naqvi MD Primary Care Provider [phone] Alma Delia Childers APRN, ANGLE SHEAR OPERATOR Unavailable Encounter Details Date Type Department Care Team (Late st Contact Info) Description 02/14/[address] [facility] Laboratory Services 1 [place] [address] Yoshi Naqvi MD [address] [place] [address] [facility] [address] [place] [address] Encounter for screening for COVID-19 Social History [...] COVID-19? No / Unsure 02/11/2021 1:13 PM CHIEF OPERATOR REFORMER documented as of this encounter Plan of Treatment Not on file documented as of this encounter Procedures Procedure Name Priority Date/Time Associated Diagnosis Comments SARS-COV-2 BY MOLECULAR Routine 02/14/2021 7:56 AM CHIEF OPERATOR REFORMER Encounter for screening for COVID-19 documented in this encounter Results * SARS-COV-2 BY MOLECULAR (02/14/2021 7:56 AM CHIEF OPERATOR REFORMER) SARSCOV2 NOT DETECTED (Referen ce Range for this test is Not Detected ) [facility] THERMOFISHER FAST DX 02/19/2021 7:17 AM CHIEF OPERATOR REFORMER [facility] Comment:This test was perfor med by a RT-PCR method. Other Non-Phlebotomy Collection / Unknown 02/14/2021 7:56 AM CHIEF OPERATOR REFORMER 02/14/2021 10:42 AM CHIEF OPERATOR REFORMER Narrative [facility] - 02/19/2021 7:17 AM CHIEF OPERATOR REFORMER Authorized Fact Sheets about this test for providers and patients are available at: https://www.fda.gov/medical-devices/csqgysfhp-sfxgqttjaa-bovavpf-devices/emergen -us e-authorizations us Yoshi Naqvi MD MICROBIOLOGY - GENERAL ORDERAB LES Final Result [facility] [address] [place] [address], documented in this encounter Visit Diagnoses Diagnosis Encounter for screening for COVID-19 documented in this encounter Additional Health Concerns Infection Onset Date Last Indicated Resolved Time COVID - 19 11/15/2020 08/01/2021 08/02/2021 2:04 PM CDT COVID - 19 Confirmed 08/01/2021 08/01/2021 022 12:16 AM CDT COVID - 19 10/31/2021 01/02/2022 01/12/2022 12:1 6 AM CHIEF OPERATOR REFORMER COVID - 19 02/20/2022 05/08/2022 05/18/2022 12:1 6 AM CDT documented as of this encounter Care Teams Skatesman Relationship Specialty Start Date End Date Yoshi Naqvi MD [address] [place] [address] [address] [place] [address] PCP - General Family Medicine 03/02/20 Alma Delia Childers APRN, ANGLE SHEAR OPERATOR [address] [place] [address] Nurse Practitioner Advanced Practice Nurse 10/15/22 documented as of this encounter
--- OUTSIDE RECORDS SUMMARY | 2024-03-18 22:18 | XMS_ITS | Encounter Summary ---
Author Organization [facility] Address [address] [address] Phone Care Team Providers Care Cyber Security Name Role Phone Yoshi Naqvi MD Primary Care Provider [phone] Alma Delia Childers APRN, BEACH EXPERT Unavailable Encounter Details Date Type Department Care Team (Late st Contact Info) Description 11/15/2020 Lab Requisition [facility] Laboratory Services 1 [place] [address] Yoshi Naqvi MD [address] [place] [address] [email or web address] [address] [place] [address] Encounter for screening for COVID-19 Social History [...] Associated Diagnosis Comments SARS-COV-2 BY MOLECULAR Routine 11/15/2020 9:36 AM CDT documented in this encounter Results * SARS-COV-2 BY MOLECULAR (11/15/2020 9:36 AM CDT) SARSCOV2 NOT DETECTED (Referen ce Range for this test is Not Detected ) [facility] THERMOFISHER FAST DX 11/16/2020 10:56 AM CDT [facility] Comment:This test was perfor med by a RT-PCR method. Other Non-Phlebotomy Collection / Unknown 11/15/2020 9:36 AM CDT 11/15/2020 12:04 PM CDT Narrative [facility] - 11/16/2020 10:56 AM CDT Authorized Fact Sheets about this test for providers and patients are available at: https://www.fda.gov/medical-devices/yprhuialf-ebqwftawlu-fnsgleb-devices/emergen -us e-authorizations us Yoshi Naqvi MD MICROBIOLOGY - GENERAL ORDERAB LES Final Result [facility] [address] [place] [address], documented in this encounter Visit Diagnoses Diagnosis Encounter for screening for COVID-19 documented in this encounter Additional Health Concerns Infection Onset Date Last Indicated Resolved Time COVID - 19 11/15/2020 08/01/2021 08/02/2021 2:04 PM CDT COVID - 19 Confirmed 08/01/2021 08/01/2021 022 12:16 AM CDT COVID - 19 10/31/2021 01/02/2022 01/12/2022 12:1 6 AM ENGINE ROOM OPERATOR COVID - 19 02/20/2022 05/08/2022 05/18/2022 12:1 6 AM CDT documented as of this encounter Care Teams Cyber Security Relationship Specialty Start Date End Date Yoshi Naqvi MD [address] [facility] [place] [address] PCP - General Family Medicine 03/02/20 Alma Delia Childers APRN, BEACH EXPERT [address] [place] [address] Nurse Practitioner Advanced Practice Nurse 10/15/22 documented as of this encounter
--- OUTSIDE RECORDS SUMMARY | 2024-03-18 22:18 | XMS_ITS | Clinical Summary ---
Author Organization [facility] Address [address] [place] [address] Care Team Providers Care Chronometer Assembler And Adjuster Name Role Phone Yoshi Naqvi MD Primary Care Provider [phone] Allergies Active Allergy Reactions Criticality Noted Date [...] 03/15/2024 Assessment & Plan (03/16/2024 9:05 AM HEARING SCREEN COORDINATOR): Avoid ear cleaning techniques Follow up as needed Call for hearing test if hearing does not continue to improve after cerumen removal Impacted cerumen, bilateral 03/15/2024 Assessment & Plan (03/15/2024 10:22 AM HEARING SCREEN COORDINATOR): Avoid ear cleaning techniques Follow up as needed Encounters Date Type Department Care Team Description 03/15/2024 9:45 AM HEARING SCREEN COORDINATOR Office Visit [facility] - [address] [place] [address] Nunu Kauffman DO Conductive hearing loss, bilateral (Primary Dx); Impacted cerumen, bilateral 03/15/2024 Telephone [facility] User Experience Designer [address] [place] [phone] Ofelia Álvarez 02/04/2024 9:30 AM HEARING SCREEN COORDINATOR Ancillary Procedure [facility] User Experience Design[employer] [address] [place] [phone] SSS (sick sinus syndrome) (CMS/HCC) (HCC); Cardiac pacemaker in situ 02/03/2024 Orders Only [facility] User Experience Designer [address] [place] [phone] Ofelia Álvarez SSS (sick sinus syndrome) (CMS/HCC) (HCC) (Primary Dx); Cardiac pacemaker in situ; Atrial fibrillation, unspecified type (HCC) from Last 3 Months Social History Tobacco Use Types Packs/Day Years Used Date Smoking Tobacco: Never Tobacco Cessation:Counseling Given: No Sex and Gender Information Value Date Recorded Sex Assigned at Not on file Legal Sex Male 12:25 AM HEARING SCREEN COORDINATOR Gender Identity Not on file Sexual Orientation Not on file Obstetrics History Last Filed Vital Signs Vital Sign Reading Time Taken Comments Blood Pressure 134/78 03/15/2024 9:36 AM HEARING SCREEN COORDINATOR Pulse 68 03/15/2024 9:36 AM HEARING SCREEN COORDINATOR Temperature 36.7 ??C (98.1 ??F) 04/14/2020 8:43 AM CS T Respiratory Rate 18 03/15/2024 9:36 AM HEARING SCREEN COORDINATOR Oxygen Saturation 96% 03/15/2024 9:36 AM HEARING SCREEN COORDINATOR Inhaled Oxygen Concentration - - Weight 66.2 kg (146 lb) 03/15/2024 9:36 AM HEARING SCREEN COORDINATOR Height 170.2 cm (5' 7.01 ) 03/15/2024 9:36 AM CS T Body Mass Index 22.86 03/15/2024 9:36 AM HEARING SCREEN COORDINATOR Plan of Treatment Health Maintenance Due Date Last Done Comments Depression Screening 1993 Hepatitis C Screening 1993 DTaP/Tdap/Td Vaccine (1 - Tdap) 2004 Varicella Vaccines (1 of 2 - 13+ 2-dose series) 2006 Hepatitis B Screening 2011 Regular Well Visit/Exam 18-64 2011 Covid-19 Vaccine ( - 2023-2 5 season) 2023 12/29/2020, 04/28/2020, 04/06/2020 Influenza Vaccine (#1) 2023 HPV Vaccines Aged Out No longer eligi ble based on patient's age to complete this topic Pneumococcal vaccine <65 Aged Out No longer eligible based on patient's age to complete this topic Procedures Procedure Name Priority Date/Time Associated Diagnosis Comments VA REMOVAL IMPACTED CERUMEN INSTRUMENTATION UNILAT Routine 03/15/2024 9:45 AM HEARING SCREEN COORDINATOR Impacted cerumen, bilateral DEVICE CHECK - REMOTE Routine 02/03/2024 9:15 AM HEARING SCREEN COORDINATOR SSS (sick sinus syndrome) (CMS/HCC) (HCC) Cardiac pacemaker in situ from Last 3 Months Results * VA REMOVAL IMPACTED CERUMEN INSTRUMENTATION UNILAT (03/15/2024 9:45 AM HEARING SCREEN COORDINATOR) Narrative Nunu Kauffman, DO - 03/15/2024 9:45 AM HEARING SCREEN COORDINATOR Nunu Kauffman, DO ? 03/16/2024 ??9:08 AM Ear Cerumen Removal Performed by: Nunu Kauffman DO Authorized by: Nunu Kauffman, DO ?? Consent Given by: ??Patient Timeout: [...] DEVICE CHECK - REMOTE (02/03/2024 9:15 AM HEARING SCREEN COORDINATOR) Anatomical Region Laterality Modality Other Narrative 02/11/2024 11:29 AM HEARING SCREEN COORDINATOR Images from the original result were not included. 02/04/2024 [email or web address] quarterly remote device check NOTE The following shows snippets from the complete quarterly report. ?? The complete report in its entirety is attached to this Result Text in Professional Skater Most recently recorded periodic iEGM from 12/03/2023 Last in-office check 10/30/2023 Next in-office check 11/04/2024 DC PPM, implanted 03/03/2020 with 75% est remaining longevity Ap 35% RVp 0% No event/alert episodes recorded this monitoring quarter Reviewed By Erum Pérez CARE CENTER MANAGER ATTESTATION I have reviewed the device interrogation report associated with this encounter in detail. I agree with the documentation recorded/scanned into the electronic medical record. Recommendations: Continue current device follow-up. Moni Mcnamara MD Moni Mcnamara MD [facility] Final Result from Last 3 Months Insurance * Guarantor: Noel Costa Account Type Relation to Patient Date of Phone Billing Address Personal/Family Self 1995 [phone] (Home) [address] [place] [id number] [facility] * Guarantor: Noel Costa Account Type Relation to Patient Date of Phone Billing Address Personal/Family Self 1995 [phone] (Home) [address] [place] [address] [facility] Care Teams Chronometer Assembler And Adjuster Relationship Specialty Start Date End Date Yoshi Naqvi MD PCP - General Family Medicine 03/06/20
--- OUTSIDE RECORDS SUMMARY | 2024-03-18 22:18 | XMS_ITS | Encounter Summary ---
Author Organization [facility] Address [address] [place] [address] Phone Care Team Providers Care Health Information Director Name Role Phone Yoshi Naqvi MD Primary Care Provider [phone] Alma Delia Childers APRN, MARINE OILER Unavailable Encounter Details Date Type Department Care Team (Late st Contact Info) Description 02/28/2021 Lab Requisition [facility] Laboratory Services [address] [place] [address] Yoshi Naqvi MD [address] [place] [address] [facility] [address] [place] [address] Encounter for screening for COVID-19 Social History [...] COVID-19? No / Unsure 02/11/2021 1:13 PM AUTOMOBILE MECHANIC ASSISTANT documented as of this encounter Plan of Treatment Not on file documented as of this encounter Procedures Procedure Name Priority Date/Time Associated Diagnosis Comments SARS-COV-2 BY MOLECULAR Routine 02/28/2021 8:12 AM AUTOMOBILE MECHANIC ASSISTANT Encounter for screening for COVID-19 documented in this encounter Results * SARS-COV-2 BY MOLECULAR (02/28/2021 8:12 AM AUTOMOBILE MECHANIC ASSISTANT) SARSCOV2 NOT DETECTED (Referen ce Range for this test is Not Detected ) [facility] THERMOFISHER FAST DX 03/02/2021 7:20 PM AUTOMOBILE MECHANIC ASSISTANT [facility] Comment:This test was perfor med by a RT-PCR method. Other Non-Phlebotomy Collection / Unknown 02/28/2021 8:12 AM AUTOMOBILE MECHANIC ASSISTANT 02/28/2021 9:04 PM AUTOMOBILE MECHANIC ASSISTANT Narrative [facility] - 03/02/2021 7:20 PM AUTOMOBILE MECHANIC ASSISTANT Authorized Fact Sheets about this test for providers and patients are available at: https://www.fda.gov/medical-devices/lldtjzojs-ykmujgrpsy-euvopfw-devices/emergen -us e-authorizations us Yoshi Naqvi MD MICROBIOLOGY - GENERAL ORDERAB LES Final Result [facility] [address] [place] [address], documented in this encounter Visit Diagnoses Diagnosis Encounter for screening for COVID-19 documented in this encounter Additional Health Concerns Infection Onset Date Last Indicated Resolved Time COVID - 19 11/15/2020 08/01/2021 08/02/2021 2:04 PM CDT COVID - 19 Confirmed 08/01/2021 08/01/2021 022 12:16 AM CDT COVID - 19 10/31/2021 01/02/2022 01/12/2022 12:1 6 AM AUTOMOBILE MECHANIC ASSISTANT COVID - 19 02/20/2022 05/08/2022 05/18/2022 12:1 6 AM CDT documented as of this encounter Care Teams Health Information Director Relationship Specialty Start Date End Date Yoshi Naqvi MD [address] [place] [address] [address] [place] [address] PCP - General Family Medicine 03/02/20 Alma Delia Childers APRN, MARINE OILER [address] [place] [address] Nurse Practitioner Advanced Practice Nurse 10/15/22 documented as of this encounter
--- OUTSIDE RECORDS SUMMARY | 2024-03-18 22:18 | XMS_ITS | Encounter Summary ---
Author Organization [facility] Address [address] [place] [address] Phone Care Team Providers Care Newcomer Hostess Name Role Phone Yoshi Naqvi MD Primary Care Provider [phone] Alma Delia Childers APRN, STUDENT AFFAIRS DEAN Unavailable Encounter Details Date Type Department Care Team (Late st Contact Info) Description 12/27/2020 Lab Requisition [facility] Laboratory Services 1 [place] [id number] Yoshi Naqvi MD [address] [place] [address] [facility] [address] [place] [address] Social History Tobacco Use Types Packs/Day Years [...] Associated Diagnosis Comments SARS-COV-2 BY MOLECULAR Routine 12/27/2020 7:52 AM CDT documented in this encounter Results * SARS-COV-2 BY MOLECULAR (12/27/2020 7:52 AM CDT) SARSCOV2 NOT DETECTED (Referen ce Range for this test is Not Detected ) [facility] THERMOFISHER FAST DX 12/27/2020 11:51 PM CDT [facility] Comment:This test was perfor med by a RT-PCR method. Other No Phlebotomy Charged / Unknown 12/27/2020 7:52 AM CDT 12/27/2020 10:45 AM CDT Narrative [facility] - 12/27/2020 11:51 PM CDT Authorized Fact Sheets about this test for providers and patients are available at: https://www.fda.gov/medical-devices/gofmowlnq-bdoyrmebiy-gejtqbr-devices/emergen cy-us e-authorizations us Yoshi Naqvi MD MICROBIOLOGY - GENERAL ORDERAB LES Final Result [facility] [address] [place] [address], documented in this encounter Visit Diagnoses Not on filedocumented in this encounter Additional Health Concerns Infection Onset Date Last Indicated Resolved Time COVID - 19 11/15/2020 08/01/2021 08/02/2021 2:04 PM CDT COVID - 19 Confirmed 08/01/2021 08/01/2021 022 12:16 AM CDT COVID - 19 10/31/2021 01/02/2022 01/12/2022 12:1 6 AM HOSPITAL HOUSEKEEPER COVID - 19 02/20/2022 05/08/2022 05/18/2022 12:1 6 AM CDT documented as of this encounter Care Teams Newcomer Hostess Relationship Specialty Start Date End Date Yoshi Naqvi MD [address] [facility] [address] [place] [address] PCP - General Family Medicine 03/02/20 Alma Delia Childers APRN, STUDENT AFFAIRS DEAN [address] [place] [address] Nurse Practitioner Advanced Practice Nurse 10/15/22 documented as of this encounter
--- OUTSIDE RECORDS SUMMARY | 2024-03-18 22:18 | XMS_ITS | Encounter Summary ---
Author Organization [facility] Address [address] [place] [address] Phone Care Team Providers Care Agency Appointments Supervisor Name Role Phone Yoshi Naqvi MD Primary Care Provider [phone] Alma Delia Childers APRN, CORE JAVA ENGINEER Unavailable Encounter Details Date Type Department Care Team (Late st Contact Info) Description 05/02/2021 Lab Requisition [facility] Laboratory Services 1 [place] [address] Yoshi Naqvi MD [address] [place] [address] [facility] [address] [place] [address] Encounter for screening for COVID-19 Social History [...] Associated Diagnosis Comments SARS-COV-2 BY MOLECULAR Routine 05/02/2021 7:34 AM LIVESTOCK HAULIER Encounter for screening for COVID-19 documented in this encounter Results * SARS-COV-2 BY MOLECULAR (05/02/2021 7:34 AM LIVESTOCK HAULIER) SARSCOV2 NOT DETECTED (Referen ce Range for this test is Not Detected ) [facility] THERMOFISHER FAST DX 05/03/2021 10:22 AM LIVESTOCK HAULIER [facility] Comment:This test was perfor med by a RT-PCR method. Other Non-Phlebotomy Collection / Unknown 05/02/2021 7:34 AM LIVESTOCK HAULIER 05/02/2021 11:41 AM LIVESTOCK HAULIER Narrative [facility] - 05/03/2021 10:22 AM LIVESTOCK HAULIER Authorized Fact Sheets about this test for providers and patients are available at: https://www.fda.gov/medical-devices/yxddkhtry-thgpwgexbx-pfyuico-devices/emergen -us e-authorizations us Yoshi Naqvi MD MICROBIOLOGY - GENERAL ORDERAB LES Final Result [facility] [address] [place] [address], documented in this encounter Visit Diagnoses Diagnosis Encounter for screening for COVID-19 documented in this encounter Additional Health Concerns Infection Onset Date Last Indicated Resolved Time COVID - 19 11/15/2020 08/01/2021 08/02/2021 2:04 PM CDT COVID - 19 Confirmed 08/01/2021 08/01/2021 022 12:16 AM CDT COVID - 19 10/31/2021 01/02/2022 01/12/2022 12:1 6 AM LIVESTOCK HAULIER COVID - 19 02/20/2022 05/08/2022 05/18/2022 12:1 6 AM CDT documented as of this encounter Care Teams Agency Appointments Supervisor Relationship Specialty Start Date End Date Yoshi Naqvi MD [address] [facility] [address] [place] [address] PCP - General Family Medicine 03/02/20 Alma Delia Childers CUSTOMER EQUIPMENT ENGINEER, CORE JAVA ENGINEER [address] [place] [address] Nurse Practitioner Advanced Practice Nurse 10/15/22 documented as of this encounter
--- OUTSIDE RECORDS SUMMARY | 2024-03-18 22:18 | XMS_ITS | Encounter Summary ---
Author Organization [facility] Address [address] [place] [address] Phone Care Team Providers Care Digital Composer Name Role Phone Yoshi Naqvi MD Primary Care Provider [phone] Alma Delia Childers APRN, WALL TAPER Unavailable Encounter Details Date Type Department Care Team (Late st Contact Info) Description 01/17/2021 Lab Requisition [facility] Laboratory Services 1 [place] [phone] Yoshi Naqvi MD [address] [place] [address] [facility] [address] [place] [address] Social History Tobacco Use Types Packs/Day Years [...] Associated Diagnosis Comments SARS-COV-2 BY MOLECULAR Routine 01/17/2021 7:50 AM DIESEL BUS MECHANIC documented in this encounter Results * SARS-COV-2 BY MOLECULAR (01/17/2021 7:50 AM DIESEL BUS MECHANIC) SARSCOV2 NOT DETECTED (Referen ce Range for this test is Not Detected ) [facility] THERMOFISHER FAST DX 01/18/2021 10:21 AM DIESEL BUS MECHANIC [facility] Comment:This test was perfor med by a RT-PCR method. Other Non-Phlebotomy Collection / Unknown 01/17/2021 7:50 AM DIESEL BUS MECHANIC 01/17/2021 10:39 AM DIESEL BUS MECHANIC Narrative [facility] - 01/18/2021 10:21 AM DIESEL BUS MECHANIC Authorized Fact Sheets about this test for providers and patients are available at: https://www.fda.gov/medical-devices/dqpkgmgim-oyaidnrdcb-pwwislg-devices/emergen -us e-authorizations us Yosih Naqvi MD MICROBIOLOGY - GENERAL ORDERAB LES Final Result [facility] [address] [place] [address], documented in this encounter Visit Diagnoses Not on filedocumented in this encounter Additional Health Concerns Infection Onset Date Last Indicated Resolved Time COVID - 19 11/15/2020 08/01/2021 08/02/2021 2:04 PM CDT COVID - 19 Confirmed 08/01/2021 08/01/2021 022 12:16 AM CDT COVID - 19 10/31/2021 01/02/2022 01/12/2022 12:1 6 AM DIESEL BUS MECHANIC COVID - 19 02/20/2022 05/08/2022 05/18/2022 12:1 6 AM CDT documented as of this encounter Care Teams Digital Composer Relationship Specialty Start Date End Date Yoshi Naqvi MD [address] [place] [address] [address] [place] [address] PCP - General Family Medicine 03/02/20 Alma Delia Childers APRN, WALL TAPER [address] [place] [address] Nurse Practitioner Advanced Practice Nurse 10/15/22 documented as of this encounter
--- OUTSIDE RECORDS SUMMARY | 2024-03-18 22:18 | XMS_ITS | Encounter Summary ---
Author Organization [facility] Address [address] [place] [address] Phone Care Team Providers Care Cytotechnologist/Cytology Supervisor Name Role Phone Yoshi Naqvi MD Primary Care Provider [phone] Alma Delia Childers APRN, MANUFACTURING SOFTWARE ENGINEER Unavailable Encounter Details Date Type Department Care Team (Late st Contact Info) Description 12/20/2020 Lab Requisition [facility] Laboratory Services [address] [place] [address] Yoshi Naqvi MD [address] [place] [address] [facility] [address] [place] [address] Encounter for screening for COVID-19 Social History [...] Associated Diagnosis Comments SARS-COV-2 BY MOLECULAR Routine 12/20/2020 7:58 AM CDT Encounter for screening for COVID-19 documented in this encounter Results * SARS-COV-2 BY MOLECULAR (12/20/2020 7:58 AM CDT) SARSCOV2 NOT DETECTED (Referen ce Range for this test is Not Detected ) [facility] THERMOFISHER FAST DX 12/21/2020 9:05 AM CDT [facility] Comment:This test was perfor med by a RT-PCR method. Other No Phlebotomy Charged / Unknown 12/20/2020 7:58 AM CDT 12/20/2020 11:[address] [facility] - 12/21/2020 9:05 AM CDT Authorized Fact Sheets about this test for providers and patients are available at: https://www.fda.gov/medical-devices/qfepxmtzs-ybhfvlpoqr-vkwovgy-devices/emergen -us e-authorizations us Yoshi Naqvi MD MICROBIOLOGY - GENERAL ORDERAB LES Final Result [facility] [address] [place] [address], documented in this encounter Visit Diagnoses Diagnosis Encounter for screening for COVID-19 documented in this encounter Additional Health Concerns Infection Onset Date Last Indicated Resolved Time COVID - 19 11/15/2020 08/01/2021 08/02/2021 2:04 PM CDT COVID - 19 Confirmed 08/01/2021 08/01/2021 022 12:16 AM CDT COVID - 19 10/31/2021 01/02/2022 01/12/2022 12:1 6 AM CONCRETE BLOCK LAYER COVID - 19 02/20/2022 05/08/2022 05/18/2022 12:1 6 AM CDT documented as of this encounter Care Teams Cytotechnologist/Cytology Supervisor Relationship Specialty Start Date End Date Yoshi Naqvi MD [address] [place] [address] PCP - General Family Medicine 03/02/20 Alma Delia Childers APRN, MANUFACTURING SOFTWARE ENGINEER [address] [place] [address] Nurse Practitioner Advanced Practice Nurse 10/15/22 documented as of this encounter
--- OUTSIDE RECORDS SUMMARY | 2024-03-18 22:18 | XMS_ITS | Encounter Summary ---
Author Organization [facility] Address [address] [place] [address] Phone Care Team Providers Care Nuclear Equipment Operator Name Role Phone Yoshi Naqvi MD Primary Care Provider [phone] Alma Delia Childers APRN, MOCK UP BUILDER Unavailable Encounter Details Date Type Department Care Team (Late st Contact Info) Description 04/25/2021 Lab Requisition [facility] Laboratory Services [address] [place] [address] Yoshi Naqvi MD [address] [place] [address] [facility] [address] [place] [address] Encounter for screening for COVID-19 Social History [...] Associated Diagnosis Comments SARS-COV-2 BY MOLECULAR Routine 04/25/2021 7:45 AM OCCUPATIONAL HEALTH AND SAFETY MANAGER Encounter for screening for COVID-19 documented in this encounter Results * SARS-COV-2 BY MOLECULAR (04/25/2021 7:45 AM OCCUPATIONAL HEALTH AND SAFETY MANAGER) SARSCOV2 NOT DETECTED (Referen ce Range for this test is Not Detected ) [facility] THERMOFISHER FAST DX 04/26/2021 8:48 AM OCCUPATIONAL HEALTH AND SAFETY MANAGER [facility] Comment:This test was perfor med by a RT-PCR method. Other Non-Phlebotomy Collection / Unknown 04/25/2021 7:45 AM OCCUPATIONAL HEALTH AND SAFETY MANAGER 04/25/2021 11:12 AM OCCUPATIONAL HEALTH AND SAFETY MANAGER Narrative [facility] - 04/26/2021 8:48 AM OCCUPATIONAL HEALTH AND SAFETY MANAGER Authorized Fact Sheets about this test for providers and patients are available at: https://www.fda.gov/medical-devices/sofndxyun-ncorsuvpha-vcazswv-devices/emergen -us e-authorizations us Yoshi Naqvi MD MICROBIOLOGY - GENERAL ORDERAB LES Final Result [facility] [address] [place] [address], documented in this encounter Visit Diagnoses Diagnosis Encounter for screening for COVID-19 documented in this encounter Additional Health Concerns Infection Onset Date Last Indicated Resolved Time COVID - 19 11/15/2020 08/01/2021 08/02/2021 2:04 PM CDT COVID - 19 Confirmed 08/01/2021 08/01/2021 022 12:16 AM CDT COVID - 19 10/31/2021 01/02/2022 01/12/2022 12:1 6 AM OCCUPATIONAL HEALTH AND SAFETY MANAGER COVID - 19 02/20/2022 05/08/2022 05/18/2022 12:1 6 AM CDT documented as of this encounter Care Teams Nuclear Equipment Operator Relationship Specialty Start Date End Date Yoshi Naqvi MD [address] [facility] [address] [place] [address] PCP - General Family Medicine 03/02/20 Alma Delia Childers MACHINIST BENCH, MOCK UP BUILDER [address] [place] [address] Nurse Practitioner Advanced Practice Nurse 10/15/22 documented as of this encounter
== END 2024-03-17 09:11 | disposition home or self-care (01) ==
LOC: ANHBWCAUD 09:10
PROVIDERS: PCP Family Medicine; Visit Provider Family Medicine
DX: H91.3 Deaf nonspeaking, not elsewhere classified (principal)
CPT/HCPCS: 92556; 92567; 92587